=== PATIENT | female | born 1940 | race Caucasian/White ===

== ENCOUNTER → 2016-04-08 | Outpatient (REF) | payer MEDICARE, BC ==
[~2016-04-08] MED LIST: /PANT40TA PO; ALLE180T33 PO; CLOP75TA2 PO; ELES0.05 OP; FLUTISP; LIPI10TA PO; MAG400TA PO; METO50TA2 PO; MICR8CAP PO; MOM30SS PO; MONT10TA2 PO; STRETAB PO; SYMB16INH INH; VAGI10TA VA; VITA-122 PO; ZOFR8TAB PO; [UNRECOGNIZED DRUG - CODE] PO; [UNRECOGNIZED DRUG - CODE] PO
[2016-04-08 15:57] LABS: ALBUMIN 3.7 GM/DL (3.2-5.2); ALBUMIN/GLOBULIN RATIO 1.42 (1.00-1.93); BILIRUBIN,TOTAL 0.3 MG/DL (0.2-1.0); CALCIUM LEVEL 9.4 MG/DL (8.8-10.2); CREATININE FOR GFR 1.25 MG/DL (0.55-1.02); GLOMERULAR FILTRATION RATE 44.5 (>39); POTASSIUM SERUM 4.9 MEQ/L (3.5-5.1); TOTAL PROTEIN 6.3 GM/DL (6.4-8.2)
== END ==
LOC: M SFHCPLAZ 10:40
PROVIDERS: ATTEND Internal Medicine
DX: E78.00 Pure hypercholesterolemia, unspecified (principal); M81.0 Age-related osteoporosis without current pathological fracture

== ENCOUNTER 2016-05-02 23:59 | Emergency (ER) | payer MEDICARE, BC ==
[2016-05-03] MEDS ORDERED: ONDANSETRON 4MG/2ML VIAL (J2405) As Ordered ONE (00:52)
[2016-05-03 01:28] LABS: ALBUMIN 4.1 GM/DL (3.2-5.2); ALBUMIN/GLOBULIN RATIO 1.32 (1.00-1.93); ALKALINE PHOSPHATASE 88 U/L (45-117); ALT/SGPT 45 U/L (12-78); AMYLASE 47 U/L (25-115); ANION GAP 12 MEQ/L (8-16); AST/SGOT 39 U/L (15-37); BILIRUBIN,DIRECT < 0.1 MG/DL (0.0-0.2); BILIRUBIN,TOTAL 0.4 MG/DL (0.2-1.0); BLOOD UREA NITROGEN 19 MG/DL (7-18); CALCIUM LEVEL 9.4 MG/DL (8.8-10.2); CARBON DIOXIDE LEVEL 25 MEQ/L (21-32); CHLORIDE LEVEL 103 MEQ/L (98-107); CREATININE FOR GFR 1.21 MG/DL (0.55-1.02); GLOMERULAR FILTRATION RATE 46.2 (>39); GLUCOSE, FASTING 106 MG/DL (83-110); POTASSIUM SERUM 4.2 MEQ/L (3.5-5.1); SODIUM LEVEL 140 MEQ/L (136-145); TOTAL PROTEIN 7.2 GM/DL (6.4-8.2)
[2016-05-03 01:35] LABS: BASO % 0.2 % (0.0-1.0); EOS # 0.1 K/mm3 (0.0-0.50); EOS % 0.9 % (0.0-3.0); LARGE UNSTAINED CELL # 0.1 K/mm3 (0.0-0.4); LARGE UNSTAINED CELL % 0.8 % (0.0-4.0); MEAN CORPUSCULAR HEMOGLOBIN 32.4 pg (27.0-33.0); MEAN CORPUSCULAR HGB CONC 33.1 g/dl (32.0-36.5); MEAN CORPUSCULAR VOLUME 98.1 fl (80.0-96.0); MONO # 0.9 K/mm3 (0.0-0.8); NEUTROPHILS # 12.7 K/mm3 (1.8-7.7); NEUTROPHILS % 86.2 % (36.0-66.0); PLATELET COUNT, AUTOMATED 217 k/mm3 (150-450); WHITE BLOOD COUNT 14.8 K/mm3 (4.0-10.0)
[2016-05-03] MEDS ORDERED: MAGNESIUM OXIDE 400 MG TAB (MAG-OX) As Ordered ONE (03:48)
--- NOTE | 2016-05-03 04:02 | EDDOCDS ---
Physician Documentation [facility] Name: Emperatriz Grimaldo Age: 76 yrs Sex: Female : 1940 Arrival Date: 05/02/2016 Time: 23:59 Bed 15 Private MD: Disposition: 05/03/16 03:24 Discharged to Home/Self Care. Impression: Nausea and vomiting, Diarrhea, unspecified, Hypomagnesemia. - Condition is Stable. - Discharge Instructions: Diarrhea, Hypomagnesemia, Nausea and Vomiting. - Prescriptions for Zofran 4 mg Oral Tablet - take 1 tablet by ORAL route 4 times per day As needed; 10 tablet. - Medication Reconciliation, Local Pharmacy Hours form. - Follow up: Javier Ríos; When: Call to arrange an appointment; Reason: Continuance of care. - Problem is an acute exacerbation. - Symptoms have improved. Historical: - Allergies: hydrocodone; lactose intolerant; - Home Meds: 1. metoprolol tartrate 50 mg Oral tab 1 tab 2 times per day 2. pantoprazole 40 mg oral TbEC 1 tab once daily 3. montelukast 10 mg oral tab 1 tab once daily 4. meloxicam 15 mg oral tab 1 tab once daily 5. epinastine 0.05 % ophthalmic drop 1 drop 2 times per day 6. fluticasone 50 mcg/actuation nasal spsn 2 sprays once daily 7. atorvastatin 10 mg oral tab 3 times a weeks 8. Vagifem 10 mcg vaginal tab 1 tab 2 times per wk 9. amoxicillin 500 mg Oral cap 4 caps prior to dental visit 10. Vitamin D3 1,000 unit oral cap daily 11. B-Complex oral tab daily 12. glucosamine-chondroitin oral oral 13. Justine Allergy oral oral daily 14. aspirin 81 mg Oral tab 1 tab once daily - PMHx: Non-Hodgkin's Lymphoma; congenital hip dislocation (left); Shingles; mononucleosis; Hypertension; High Cholesterol; GERD; - PSHx: Appendectomy; Cholecystectomy; Hysterectomy; Tonsillectomy; Hip surgery; surgery for endometriosis; - Social history: Smoking status: Patient states was never smoker of tobacco. No barriers to communication noted, The patient speaks fluent French, Speaks appropriately for age. - Family history: Not pertinent. - : The pt / caregiver states he / she is not on anticoagulants. Home medication list is obtained from the patient. - Exposure Risk Screening:: None identified. Vital Signs: 05/03 00:07 BP 141 / 69; Pulse 88; Resp 18; Temp 96.5(TE); Pulse Ox 97% on R/A; Weight 79.38 kg / johnnie 175 lbs (R); Height 5 ft. 7 in. (170.18 cm) (R); 03:38 BP 144 / 83; Pulse 107; Resp 18; Temp 98.4(O); Pulse Ox 94% on R/A; Pain 0/10; johnnie 00:07 Body Mass Index 27.41 (79.38 kg, 170.18 cm) johnnie MDM: 00:46 Ondansetron 4 mg IVP once ordered. mm11 00:46 IV Saline Lock ordered. mm11 00:46 Undress patient appropriately for examination ordered. mm11 00:46 LR Solution 1000 ml IV at bolus once ordered. mm11 00:47 Amylase Ordered. EDMS 00:47 Basic Metabolic Profile Ordered. EDMS 00:47 CBC with Diff Ordered. EDMS 00:47 Cardiac Injury Profile Ordered. EDMS 00:47 Lipase Ordered. EDMS 00:47 Liver Profile Ordered. EDMS 00:47 Troponin Ordered. EDMS 00:47 Magnesium Level Ordered. EDMS 00:47 NOTHING BY MOUTH+DIET ordered. EDMS 01:22 Financial registration complete. pm4 02:00 Basic Metabolic Profile Reviewed. mm11 02:00 CBC with Diff Reviewed. mm11 02:00 Liver Profile Reviewed. mm11 02:00 Magnesium Level Reviewed. mm11 02:00 Amylase Reviewed. mm11 02:00 Cardiac Injury Profile Reviewed. mm11 02:00 Lipase Reviewed. mm11 02:00 Troponin Reviewed. mm11 03:14 Magnesium Oxide 400 mg PO once ordered. mm11 03:17 [facility] [place] Payment Agreement was scanned into [employer] and attached to record. gjb Administered Medications: 00:56 Drug: Ondansetron 4 mg [ondansetron HCl 2 mg/mL intravenous solution (2 mL)] Route: js15 IVP; Site: left antecubital; 00:56 Drug: LR 1000 ml [lactated ringers intravenous solution] Route: IV; Rate: bolus; Site: js15 left antecubital; 03:58 Follow up: IV Intake: 600ml js15 03:58 Drug: Magnesium Oxide 400 mg [magnesium oxide 400 mg tablet (1 tabs)] Route: PO; js15 Signatures: Dispatcher [employer] Anibal Pierre DO DO mm11 Alison DoanRN RN js15 Britni Macedo Paul, Reg Reg pm4 The chart was reviewed and I authenticate all verbal orders and agree with the evaluation and treatment provided.Attachments: 03:17 [facility] Payment Agreement della MTDD
--- NOTE | 2016-05-03 04:02 | EDDOCDS ---
Nurse's Notes [facility] Name: Emperatriz Grimaldo Age: 76 yrs Sex: Female : 1940 Arrival Date: 05/02/2016 Time: 23:59 Bed 15 Private MD: Diagnosis: Nausea and vomiting;Diarrhea, unspecified;Hypomagnesemia Presentation: 05/03 00:07 Presenting complaint: EMS states: Pt has N/V/D that started earlier this evening; pt js15 states that she has hx of becoming very dehydrated when this happens. Adult Sepsis Screening: The patient does not have new or worsening altered mentation. Patient's respiratory rate is less than 22. Systolic blood pressure is greater than 100. Patient has a qSOFA score of 0- Negative Sepsis Screen. Suicide/Homicide risk assessment- the patient denies having any suicidal and/or homicidal ideations and does not present with any other emotional, behavioral or mental health complaints. Status: Patient is not a director of maternity services or dependent. Transition of care: patient was not received from another setting of care. 00:07 Acuity: JUDY Level 3 js15 00:07 Method Of Arrival: Ambulance js15 Triage Assessment: 00:18 General: Appears uncomfortable, Behavior is anxious, appropriate for age, cooperative. js15 Pain: Location: back Pain currently is 6 out of 10 on a pain scale. The patient is triaged at the bedside. See Assessment in Nurses Notes section of ED record. Neurological: Level of Consciousness is awake, alert, obeys commands, Oriented to person, place, time. Respiratory: Airway is patent Respiratory effort is even, unlabored, Respiratory pattern is regular, symmetrical. Derm: Skin is pink, warm & dry. Historical: - Allergies: hydrocodone; lactose intolerant; - Home Meds: 1. metoprolol tartrate 50 mg Oral tab 1 tab 2 times per day 2. pantoprazole 40 mg oral TbEC 1 tab once daily 3. montelukast 10 mg oral tab 1 tab once daily 4. meloxicam 15 mg oral tab 1 tab once daily 5. epinastine 0.05 % ophthalmic drop 1 drop 2 times per day 6. fluticasone 50 mcg/actuation nasal spsn 2 sprays once daily 7. atorvastatin 10 mg oral tab 3 times a weeks 8. Vagifem 10 mcg vaginal tab 1 tab 2 times per wk 9. amoxicillin 500 mg Oral cap 4 caps prior to dental visit 10. Vitamin D3 1,000 unit oral cap daily 11. B-Complex oral tab daily 12. glucosamine-chondroitin oral oral 13. Justine Allergy oral oral daily 14. aspirin 81 mg Oral tab 1 tab once daily - PMHx: Non-Hodgkin's Lymphoma; congenital hip dislocation (left); Shingles; mononucleosis; Hypertension; High Cholesterol; GERD; - PSHx: Appendectomy; Cholecystectomy; Hysterectomy; Tonsillectomy; Hip surgery; surgery for endometriosis; - Social history: Smoking status: Patient states was never smoker of tobacco. No barriers to communication noted, The patient speaks fluent Spanish, Speaks appropriately for age. - Family history: Not pertinent. - : The pt / caregiver states he / she is not on anticoagulants. Home medication list is obtained from the patient. - Exposure Risk Screening:: None identified. Screenin:54 Screening information is obtained from the patient. Fall risk: No risks identified. js15 Assistance ADL's: requires no assistance with activities of daily living. Abuse/DV Screen: The patient / caregiver reports he/she is: not in a situation that causes fear, pain or injury. Nutritional screening: No deficits noted. Advance Directives: There is no active DNR order. home support is adequate. Assessment: 00:15 General: see triage note. js15 01:52 Reassessment: Patient appears in no apparent distress at this time. Patient states js15 feeling better. Patient states symptoms have improved. Pt resting on stretcher, using ipad; respirations even and unlabored; skin pink, warm, dry. 02:45 Reassessment: Patient appears in no apparent distress at this time. Patient states js15 feeling better. Patient states symptoms have improved. Pt resting on stretcher, respirations even and unlabored; skin pink, warm, dry. 03:59 General: Appears in no apparent distress, comfortable, Behavior is appropriate for age, js15 cooperative. Pain: Denies pain. Neurological: Level of Consciousness is awake, alert, obeys commands, Oriented to person, place, time. Respiratory: Airway is patent Respiratory effort is even, unlabored, Respiratory pattern is regular, symmetrical. GI: Bowel sounds present X 4 quads. Abd is soft and non tender X 4 quads. Derm: Skin is pink, warm & dry. Vital Signs: 00:07 BP 141 / 69; Pulse 88; Resp 18; Temp 96.5(TE); Pulse Ox 97% on R/A; Weight 79.38 kg johnnie (R); Height 5 ft. 7 in. (170.18 cm) (R); 03:38 BP 144 / 83; Pulse 107; Resp 18; Temp 98.4(O); Pulse Ox 94% on R/A; Pain 0/10; johnnie 00:07 Body Mass Index 27.41 (79.38 kg, 170.18 cm) johnnie Vitals: 00:18 Log In Time N/A - ambulance arrival. js15 ED Course: 00:01 Patient visited by Rashi Pizarro, Parking Enforcer. ml3 00:01 Mildred Del Toro,EMIR is Primary Nurse. ml3 00:01 Patient moved to Waiting ml3 00:01 Patient moved to 15 ml3 00:07 Patient visited by Katie Ferraro PCA. johnnie 00:09 Triage Initiated js15 00:39 Anibal Allred DO is Attending Physician. mm11 00:39 Patient visited by Anibal Allred DO. mm11 00:45 Patient visited by Anibal Allred DO. mm11 00:50 Inserted saline lock: 20 gauge in left antecubital area The patient tolerated the js15 procedure well. 00:51 Magnesium Level Sent. js15 00:51 Amylase Sent. js15 00:51 Basic Metabolic Profile Sent. js15 00:51 CBC with Diff Sent. js15 00:51 Cardiac Injury Profile Sent. js15 00:51 Lipase Sent. js15 00:51 Liver Profile Sent. js15 00:51 Troponin Sent. js15 00:54 Primary Nurse role handed off by Mildred Del Toro,EMIR johnnie 01:50 Patient visited by Alison Doan RN. js15 03:04 Patient visited by Katie Ferraro PCA. johnnie 03:16 Patient name changed from Emperatriz\S\\S\Kingman\S\ to Emperatriz\S\ \S\Kingman. EDMS 03:17 [facility] Payment Agreement was scanned into [employer] and attached to record. gjb 03:23 Javier Ríos is Referral Physician. mm11 03:39 Patient visited by Katie Ferraro PCA. johnnie 03:59 The patient / caregiver is instructed regarding the plan of care and ED course. js15 04:01 Discontinued IV lock intact, bleeding controlled, pressure dressing applied, No js15 redness/swelling at site. No procedures done that require assistance. Administered Medications: 00:56 Drug: Ondansetron 4 mg [ondansetron HCl 2 mg/mL intravenous solution (2 mL)] Route: js15 IVP; Site: left antecubital; 00:56 Drug: LR 1000 ml [lactated ringers intravenous solution] Route: IV; Rate: bolus; Site: js15 left antecubital; 03:58 Follow up: IV Intake: 600ml js15 03:58 Drug: Magnesium Oxide 400 mg [magnesium oxide 400 mg tablet (1 tabs)] Route: PO; js15 Intake: 03:58 IV: 600.00ml; Total: 600.00ml. js15 Order Results: Lab Order: Amylase; SPEC'M 05/03/16 00:49 Test: AMYLASE; Value: 47; Range: 25-115; Units: U/L; Status: F Lab Order: Basic Metabolic Profile; SPEC'M 05/03/16 00:49 Test: GLUCOSE, FASTING; Value: 106; Range: 83-110; Units: MG/DL; Status: F Test: BLOOD UREA NITROGEN; Value: 19; Range: 7-18; Abnormal: Above high normal; Units: MG/DL; Status: F Test: CREATININE FOR GFR; Value: 1.21; Range: 0.55-1.02; Abnormal: Above high normal; Units: MG/DL; Status: F Test: GLOMERULAR FILTRATION RATE; Value: 46.2; Range: >39; Status: F Test: SODIUM LEVEL; Value: 140; Range: 136-145; Units: MEQ/L; Status: F Test: POTASSIUM SERUM; Value: 4.2; Range: 3.5-5.1; Units: MEQ/L; Status: F Test: CHLORIDE LEVEL; Value: 103; Range: 98-107; Units: MEQ/L; Status: F Test: CARBON DIOXIDE LEVEL; Value: 25; Range: 21-32; Units: MEQ/L; Status: F Test: ANION GAP; Value: 12; Range: 8-16; Units: MEQ/L; Status: F Test: CALCIUM LEVEL; Value: 9.4; Range: 8.8-10.2; Units: MG/DL; Status: F Test Note: ; Units are mL/min/1.73 m2 Chronic Kidney Disease Staging per NKF: Stage I & II GFR >=60 Normal to Mildly Decreased Stage III GFR 30-59 Moderately Decreased Stage IV GFR 15-29 Severely Decreased Stage V GFR <15 Very Little GFR Left ESRD GFR <15 on PIE MAKER Lab Order: CBC with Diff; SPEC'M 05/03/16 00:49 Test: WHITE BLOOD COUNT; Value: 14.8; Range: 4.0-10.0; Abnormal: Above high normal; Units: K/mm3; Status: F Test: RED BLOOD COUNT; Value: 5.31; Range: 4.00-5.40; Units: M/mm3; Status: F Test: HEMOGLOBIN; Value: 17.2; Range: 12.0-16.0; Abnormal: Above high normal; Units: g/dl; Status: F Test: HEMATOCRIT; Value: 52.1; Range: 36.0-47.0; Abnormal: Above high normal; Units: %; Status: F Test: MEAN CORPUSCULAR VOLUME; Value: 98.1; Range: 80.0-96.0; Abnormal: Above high normal; Units: fl; Status: F Test: MEAN CORPUSCULAR HEMOGLOBIN; Value: 32.4; Range: 27.0-33.0; Units: pg; Status: F Test: MEAN CORPUSCULAR HGB CONC; Value: 33.1; Range: 32.0-36.5; Units: g/dl; Status: F Test: RED CELL DISTRIBUTION WIDTH; Value: 13.0; Range: 11.5-14.5; Units: %; Status: F Test: PLATELET COUNT, AUTOMATED; Value: 217; Range: 150-450; Units: k/mm3; Status: F Test: NEUTROPHILS %; Value: 86.2; Range: 36.0-66.0; Abnormal: Above high normal; Units: %; Status: F Test: LYMPH %; Value: 6.0; Range: 24.0-44.0; Abnormal: Below low normal; Units: %; Status: F Test: MONO %; Value: 6.0; Range: 0.0-5.0; Abnormal: Above high normal; Units: %; Status: F Test: EOS %; Value: 0.9; Range: 0.0-3.0; Units: %; Status: F Test: BASO %; Value: 0.2; Range: 0.0-1.0; Units: %; Status: F Test: LARGE UNSTAINED CELL %; Value: 0.8; Range: 0.0-4.0; Units: %; Status: F Test: NEUTROPHILS #; Value: 12.7; Range: 1.8-7.7; Abnormal: Above high normal; Units: K/mm3; Status: F Test: LYMPH #; Value: 1.0; Range: 1.5-4.5; Abnormal: Below low normal; Units: K/mm3; Status: F Test: MONO #; Value: 0.9; Range: 0.0-0.8; Abnormal: Above high normal; Units: K/mm3; Status: F Test: EOS #; Value: 0.1; Range: 0.0-0.50; Units: K/mm3; Status: F Test: BASO #; Value: 0.0; Range: 0.0-0.2; Units: K/mm3; Status: F Test: LARGE UNSTAINED CELL #; Value: 0.1; Range: 0.0-0.4; Units: K/mm3; Status: F Lab Order: Cardiac Injury Profile; [facility]' 05/03/16 00:49 Test: CPK CREATINE PHOSPHOKINASE; Value: 82; Range: 26-192; Units: U/L; Status: F Test: CK-MB VALUE MASS; Value: 1.0; Range: 0.0-3.6; Units: NG/ML; Status: F Test: MB/CK RELATIVE INDEX; Value: 1.21; Range: < OR =4; Status: F Test Note: ; DIAGNOSIS CRITERIA MMB ng/ml Relative Index (RI) NON-AMI < or = 5 N/A SILVESTRE ZONE > 5 < or = 4 AMI > 5 > 4 Lab Order: Lipase; [facility]' 05/03/16 00:49 Test: LIPASE; Value: 165; Range: 73-393; Units: U/L; Status: F Lab Order: Liver Profile; SPEC' 05/03/16 00:49 Test: AST/SGOT; Value: 39; Range: 15-37; Abnormal: Above high normal; Units: U/L; Status: F Test: ALT/SGPT; Value: 45; Range: 12-78; Units: U/L; Status: F Test: ALKALINE PHOSPHATASE; Value: 88; Range: 45-117; Units: U/L; Status: F Test: BILIRUBIN,TOTAL; Value: 0.4; Range: 0.2-1.0; Units: MG/DL; Status: F Test: BILIRUBIN,DIRECT; Value: < 0.1; Range: 0.0-0.2; Units: MG/DL; Status: F Test: TOTAL PROTEIN; Value: 7.2; Range: 6.4-8.2; Units: GM/DL; Status: F Test: ALBUMIN; Value: 4.1; Range: 3.2-5.2; Units: GM/DL; Status: F Test: ALBUMIN/GLOBULIN RATIO; Value: 1.32; Range: 1.00-1.93; Status: F Lab Order: Troponin; [facility]' 05/03/16 00:49 Test: TROPONIN I; Value: < 0.02; Range: < 0.10; Units: NG/ML; Status: F Test Note: ; Troponin I Reference Interval for [facility] [employer] LOCI: 99th Percentile= 0.00-0.045 ng/ml Risk Stratification: <= 0.10 ng/ml Decreased Risk for Adverse Clinical Events. 0.10-1.50 ng/ml Increased Risk for Adverse Clinical Events. Evaluation of additional criterion and/or repeat testing in 2-6 hours is suggested to rule out myocardial damage. >= 1.50 ng/ml Indicative of Myocardial Injury. Lab Order: Magnesium Level; SPEC'M 05/03/16 00:49 Test: MAGNESIUM LEVEL; Value: 1.7; Range: 1.8-2.4; Abnormal: Below low normal; Units: MG/DL; Status: F Outcome: 03:24 Discharge ordered by Provider. mm11 04:01 Discharge Assessment: Patient awake, alert and oriented x 3. No cognitive and/or js15 functional deficits noted. Patient verbalized understanding of disposition instructions. patient administered narcotics - no. The following High Risk Discharge criteria are identified: None. Discharged to home via wheelchair. Condition: stable. Discharge instructions given to patient, Instructed on discharge instructions, follow up and referral plans. medication usage, Demonstrated understanding of instructions, medications, Pt was receptive of discharge instructions/ teaching. Prescriptions given X 1. No special radiology studies were completed. Property sent home with patient. 04:01 Patient left the ED. js15 Signatures: Dispatcher [employer] EDMS Rashi Pizarro, Parking Enforcer Unit ml3 Anibal Allred, DO mm11 Katie Ferraro, LAUNDERER HAND LAUNDERER HAND Alison Vail,RN RN js15 Britni Macedo MTDD
--- NOTE | 2016-05-05 05:02 | EDDOCDS ---
Physician Documentation [facility] Name: Emperatriz Grimaldo Age: 76 yrs Sex: Female : 1940 Arrival Date: 05/02/2016 Time: 23:59 Bed 15 Private MD: Disposition: 05/03/16 03:24 Discharged to Home/Self Care. Impression: Nausea and vomiting, Diarrhea, unspecified, Hypomagnesemia. - Condition is Stable. - Discharge Instructions: Diarrhea, Hypomagnesemia, Nausea and Vomiting. - Prescriptions for Zofran 4 mg Oral Tablet - take 1 tablet by ORAL route 4 times per day As needed; 10 tablet. - Medication Reconciliation, Local Pharmacy Hours form. - Follow up: Javier Ríos; When: Call to arrange an appointment; Reason: Continuance of care. - Problem is an acute exacerbation. - Symptoms have improved. Historical: - Allergies: hydrocodone; lactose intolerant; - Home Meds: 1. metoprolol tartrate 50 mg Oral tab 1 tab 2 times per day 2. pantoprazole 40 mg oral TbEC 1 tab once daily 3. montelukast 10 mg oral tab 1 tab once daily 4. meloxicam 15 mg oral tab 1 tab once daily 5. epinastine 0.05 % ophthalmic drop 1 drop 2 times per day 6. fluticasone 50 mcg/actuation nasal spsn 2 sprays once daily 7. atorvastatin 10 mg oral tab 3 times a weeks 8. Vagifem 10 mcg vaginal tab 1 tab 2 times per wk 9. amoxicillin 500 mg Oral cap 4 caps prior to dental visit 10. Vitamin D3 1,000 unit oral cap daily 11. B-Complex oral tab daily 12. glucosamine-chondroitin oral oral 13. Justine Allergy oral oral daily 14. aspirin 81 mg Oral tab 1 tab once daily - PMHx: Non-Hodgkin's Lymphoma; congenital hip dislocation (left); Shingles; mononucleosis; Hypertension; High Cholesterol; GERD; - PSHx: Appendectomy; Cholecystectomy; Hysterectomy; Tonsillectomy; Hip surgery; surgery for endometriosis; - Social history: Smoking status: Patient states was never smoker of tobacco. No barriers to communication noted, The patient speaks fluent [place], Speaks appropriately for age. - Family history: Not pertinent. - : The pt / caregiver states he / she is not on anticoagulants. Home medication list is obtained from the patient. - Exposure Risk Screening:: None identified. Vital Signs: 05/03 00:07 BP 141 / 69; Pulse 88; Resp 18; Temp 96.5(TE); Pulse Ox 97% on R/A; Weight 79.38 kg / johnnie 175 lbs (R); Height 5 ft. 7 in. (170.18 cm) (R); 03:38 BP 144 / 83; Pulse 107; Resp 18; Temp 98.4(O); Pulse Ox 94% on R/A; Pain 0/10; johnnie 00:07 Body Mass Index 27.41 (79.38 kg, 170.18 cm) johnnie MDM: 00:46 Ondansetron 4 mg IVP once ordered. mm11 00:46 IV Saline Lock ordered. mm11 00:46 Undress patient appropriately for examination ordered. mm11 00:46 LR Solution 1000 ml IV at bolus once ordered. mm11 00:47 Amylase Ordered. EDMS 00:47 Basic Metabolic Profile Ordered. EDMS 00:47 CBC with Diff Ordered. EDMS 00:47 Cardiac Injury Profile Ordered. EDMS 00:47 Lipase Ordered. EDMS 00:47 Liver Profile Ordered. EDMS 00:47 Troponin Ordered. EDMS 00:47 Magnesium Level Ordered. EDMS 00:47 NOTHING BY MOUTH+DIET ordered. EDMS 01:22 Financial registration complete. pm4 02:00 Basic Metabolic Profile Reviewed. mm11 02:00 CBC with Diff Reviewed. mm11 02:00 Liver Profile Reviewed. mm11 02:00 Magnesium Level Reviewed. mm11 02:00 Amylase Reviewed. mm11 02:00 Cardiac Injury Profile Reviewed. mm11 02:00 Lipase Reviewed. mm11 02:00 Troponin Reviewed. mm11 03:14 Magnesium Oxide 400 mg PO once ordered. mm11 03:17 [facility] Payment Agreement was scanned into [employer] and attached to record. gjb 17:12 T-Sheet-- Draft Copy was scanned into [employer] and attached to record. klr Administered Medications: 00:56 Drug: Ondansetron 4 mg [ondansetron HCl 2 mg/mL intravenous solution (2 mL)] Route: js15 IVP; Site: left antecubital; 00:56 Drug: LR 1000 ml [lactated ringers intravenous solution] Route: IV; Rate: bolus; Site: js15 left antecubital; 03:58 Follow up: IV Intake: 600ml js15 03:58 Drug: Magnesium Oxide 400 mg [magnesium oxide 400 mg tablet (1 tabs)] Route: PO; js15 Signatures: Dispatcher [employer] Anibal Pierre DO DO mm11 Alison Doan,RN RN js15 Britni Macedo Kathie klr Montondo, Paul, Reg Reg pm4 The chart was reviewed and I authenticate all verbal orders and agree with the evaluation and treatment provided.Attachments: 03:17 [facility] Payment Agreement gjiron 17:12 T-Sheet-- Draft Copy klr Chart Complete MTDD
--- NOTE | 2016-05-05 05:02 | EDDOCDS ---
Physician Documentation [facility] Name: Emperatriz Grimaldo Age: 76 yrs Sex: Female : 1940 Arrival Date: 05/02/2016 Time: 23:59 Bed 15 Private MD: Disposition: 05/03/16 03:24 Discharged to Home/Self Care. Impression: Nausea and vomiting, Diarrhea, unspecified, Hypomagnesemia. - Condition is Stable. - Discharge Instructions: Diarrhea, Hypomagnesemia, Nausea and Vomiting. - Prescriptions for Zofran 4 mg Oral Tablet - take 1 tablet by ORAL route 4 times per day As needed; 10 tablet. - Medication Reconciliation, Local Pharmacy Hours form. - Follow up: Javier Ríos; When: Call to arrange an appointment; Reason: Continuance of care. - Problem is an acute exacerbation. - Symptoms have improved. Historical: - Allergies: hydrocodone; lactose intolerant; - Home Meds: 1. metoprolol tartrate 50 mg Oral tab 1 tab 2 times per day 2. pantoprazole 40 mg oral TbEC 1 tab once daily 3. montelukast 10 mg oral tab 1 tab once daily 4. meloxicam 15 mg oral tab 1 tab once daily 5. epinastine 0.05 % ophthalmic drop 1 drop 2 times per day 6. fluticasone 50 mcg/actuation nasal spsn 2 sprays once daily 7. atorvastatin 10 mg oral tab 3 times a weeks 8. Vagifem 10 mcg vaginal tab 1 tab 2 times per wk 9. amoxicillin 500 mg Oral cap 4 caps prior to dental visit 10. Vitamin D3 1,000 unit oral cap daily 11. B-Complex oral tab daily 12. glucosamine-chondroitin oral oral 13. Justine Allergy oral oral daily 14. aspirin 81 mg Oral tab 1 tab once daily - PMHx: Non-Hodgkin's Lymphoma; congenital hip dislocation (left); Shingles; mononucleosis; Hypertension; High Cholesterol; GERD; - PSHx: Appendectomy; Cholecystectomy; Hysterectomy; Tonsillectomy; Hip surgery; surgery for endometriosis; - Social history: Smoking status: Patient states was never smoker of tobacco. No barriers to communication noted, The patient speaks fluent Wolof, Speaks appropriately for age. - Family history: Not pertinent. - : The pt / caregiver states he / she is not on anticoagulants. Home medication list is obtained from the patient. - Exposure Risk Screening:: None identified. Vital Signs: 05/03 00:07 BP 141 / 69; Pulse 88; Resp 18; Temp 96.5(TE); Pulse Ox 97% on R/A; Weight 79.38 kg / johnnie 175 lbs (R); Height 5 ft. 7 in. (170.18 cm) (R); 03:38 BP 144 / 83; Pulse 107; Resp 18; Temp 98.4(O); Pulse Ox 94% on R/A; Pain 0/10; johnnie 00:07 Body Mass Index 27.41 (79.38 kg, 170.18 cm) johnnie MDM: 00:46 Ondansetron 4 mg IVP once ordered. mm11 00:46 IV Saline Lock ordered. mm11 00:46 Undress patient appropriately for examination ordered. mm11 00:46 LR Solution 1000 ml IV at bolus once ordered. mm11 00:47 Amylase Ordered. EDMS 00:47 Basic Metabolic Profile Ordered. EDMS 00:47 CBC with Diff Ordered. EDMS 00:47 Cardiac Injury Profile Ordered. EDMS 00:47 Lipase Ordered. EDMS 00:47 Liver Profile Ordered. EDMS 00:47 Troponin Ordered. EDMS 00:47 Magnesium Level Ordered. EDMS 00:47 NOTHING BY MOUTH+DIET ordered. EDMS 01:22 Financial registration complete. pm4 02:00 Basic Metabolic Profile Reviewed. mm11 02:00 CBC with Diff Reviewed. mm11 02:00 Liver Profile Reviewed. mm11 02:00 Magnesium Level Reviewed. mm11 02:00 Amylase Reviewed. mm11 02:00 Cardiac Injury Profile Reviewed. mm11 02:00 Lipase Reviewed. mm11 02:00 Troponin Reviewed. mm11 03:14 Magnesium Oxide 400 mg PO once ordered. mm11 03:17 [facility] Payment Agreement was scanned into [employer] and attached to record. gjb 17:12 T-Sheet-- Draft Copy was scanned into [employer] and attached to record. klr Administered Medications: 00:56 Drug: Ondansetron 4 mg [ondansetron HCl 2 mg/mL intravenous solution (2 mL)] Route: js15 IVP; Site: left antecubital; 00:56 Drug: LR 1000 ml [lactated ringers intravenous solution] Route: IV; Rate: bolus; Site: js15 left antecubital; 03:58 Follow up: IV Intake: 600ml js15 03:58 Drug: Magnesium Oxide 400 mg [magnesium oxide 400 mg tablet (1 tabs)] Route: PO; js15 Signatures: Dispatcher [employer] Anibal Pierre DO DO mm11 Alison Doan,RN RN js15 Britni Macedo Kathie klr Montondo, Paul, Reg Reg pm4 The chart was reviewed and I authenticate all verbal orders and agree with the evaluation and treatment provided.Attachments: 03:17 [facility] Payment Agreement gjiron 17:12 T-Sheet-- Draft Copy klr Chart Complete MTDD
--- NOTE | 2016-05-05 05:02 | EDDOCDS ---
Nurse's Notes [facility] Name: Emperatriz Grimaldo Age: 76 yrs Sex: Female : 1940 Arrival Date: 05/02/2016 Time: 23:59 Bed 15 Private MD: Diagnosis: Nausea and vomiting;Diarrhea, unspecified;Hypomagnesemia Presentation: 05/03 00:07 Presenting complaint: EMS states: Pt has N/V/D that started earlier this evening; pt js15 states that she has hx of becoming very dehydrated when this happens. Adult Sepsis Screening: The patient does not have new or worsening altered mentation. Patient's respiratory rate is less than 22. Systolic blood pressure is greater than 100. Patient has a qSOFA score of 0- Negative Sepsis Screen. Suicide/Homicide risk assessment- the patient denies having any suicidal and/or homicidal ideations and does not present with any other emotional, behavioral or mental health complaints. Status: Patient is not a fitness services manager or dependent. Transition of care: patient was not received from another setting of care. 00:07 Acuity: JUDY Level 3 js15 00:07 Method Of Arrival: Ambulance js15 Triage Assessment: 00:18 General: Appears uncomfortable, Behavior is anxious, appropriate for age, cooperative. js15 Pain: Location: back Pain currently is 6 out of 10 on a pain scale. The patient is triaged at the bedside. See Assessment in Nurses Notes section of ED record. Neurological: Level of Consciousness is awake, alert, obeys commands, Oriented to person, place, time. Respiratory: Airway is patent Respiratory effort is even, unlabored, Respiratory pattern is regular, symmetrical. Derm: Skin is pink, warm & dry. Historical: - Allergies: hydrocodone; lactose intolerant; - Home Meds: 1. metoprolol tartrate 50 mg Oral tab 1 tab 2 times per day 2. pantoprazole 40 mg oral TbEC 1 tab once daily 3. montelukast 10 mg oral tab 1 tab once daily 4. meloxicam 15 mg oral tab 1 tab once daily 5. epinastine 0.05 % ophthalmic drop 1 drop 2 times per day 6. fluticasone 50 mcg/actuation nasal spsn 2 sprays once daily 7. atorvastatin 10 mg oral tab 3 times a weeks 8. Vagifem 10 mcg vaginal tab 1 tab 2 times per wk 9. amoxicillin 500 mg Oral cap 4 caps prior to dental visit 10. Vitamin D3 1,000 unit oral cap daily 11. B-Complex oral tab daily 12. glucosamine-chondroitin oral oral 13. Justine Allergy oral oral daily 14. aspirin 81 mg Oral tab 1 tab once daily - PMHx: Non-Hodgkin's Lymphoma; congenital hip dislocation (left); Shingles; mononucleosis; Hypertension; High Cholesterol; GERD; - PSHx: Appendectomy; Cholecystectomy; Hysterectomy; Tonsillectomy; Hip surgery; surgery for endometriosis; - Social history: Smoking status: Patient states was never smoker of tobacco. No barriers to communication noted, The patient speaks fluent Tunisian, Speaks appropriately for age. - Family history: Not pertinent. - : The pt / caregiver states he / she is not on anticoagulants. Home medication list is obtained from the patient. - Exposure Risk Screening:: None identified. Screenin:54 Screening information is obtained from the patient. Fall risk: No risks identified. js15 Assistance ADL's: requires no assistance with activities of daily living. Abuse/DV Screen: The patient / caregiver reports he/she is: not in a situation that causes fear, pain or injury. Nutritional screening: No deficits noted. Advance Directives: There is no active DNR order. home support is adequate. Assessment: 00:15 General: see triage note. js15 01:52 Reassessment: Patient appears in no apparent distress at this time. Patient states js15 feeling better. Patient states symptoms have improved. Pt resting on stretcher, using ipad; respirations even and unlabored; skin pink, warm, dry. 02:45 Reassessment: Patient appears in no apparent distress at this time. Patient states js15 feeling better. Patient states symptoms have improved. Pt resting on stretcher, respirations even and unlabored; skin pink, warm, dry. 03:59 General: Appears in no apparent distress, comfortable, Behavior is appropriate for age, js15 cooperative. Pain: Denies pain. Neurological: Level of Consciousness is awake, alert, obeys commands, Oriented to person, place, time. Respiratory: Airway is patent Respiratory effort is even, unlabored, Respiratory pattern is regular, symmetrical. GI: Bowel sounds present X 4 quads. Abd is soft and non tender X 4 quads. Derm: Skin is pink, warm & dry. Vital Signs: 00:07 BP 141 / 69; Pulse 88; Resp 18; Temp 96.5(TE); Pulse Ox 97% on R/A; Weight 79.38 kg johnnie (R); Height 5 ft. 7 in. (170.18 cm) (R); 03:38 BP 144 / 83; Pulse 107; Resp 18; Temp 98.4(O); Pulse Ox 94% on R/A; Pain 0/10; johnnie 00:07 Body Mass Index 27.41 (79.38 kg, 170.18 cm) johnnie Vitals: 00:18 Log In Time N/A - ambulance arrival. js15 ED Course: 00:01 Patient visited by Rashi Pizarro, Pasta Press Operator. ml3 00:01 Mildred Del Toro,EMIR is Primary Nurse. ml3 00:01 Patient moved to Waiting ml3 00:01 Patient moved to 15 ml3 00:07 Patient visited by Katie Ferraro PCA. johnnie 00:09 Triage Initiated js15 00:39 Anibal Allred DO is Attending Physician. mm11 00:39 Patient visited by Anibal Allred DO. mm11 00:45 Patient visited by Anibal Allred DO. mm11 00:50 Inserted saline lock: 20 gauge in left antecubital area The patient tolerated the js15 procedure well. 00:51 Magnesium Level Sent. js15 00:51 Amylase Sent. js15 00:51 Basic Metabolic Profile Sent. js15 00:51 CBC with Diff Sent. js15 00:51 Cardiac Injury Profile Sent. js15 00:51 Lipase Sent. js15 00:51 Liver Profile Sent. js15 00:51 Troponin Sent. js15 00:54 Primary Nurse role handed off by Mildred Del Toro,EMIR johnnie 01:50 Patient visited by Alison Doan RN. js15 03:04 Patient visited by Katie Ferraro PCA. johnnie 03:16 Patient name changed from Emperatriz\S\\S[facility]\S\ to Emperatriz\S\ \S\[facility]. EDMS 03:17 [facility] was scanned into [employer] and attached to record. gjb 03:23 Javier Ríos is Referral Physician. mm11 03:39 Patient visited by Katie Ferraro PCA. johnnie 03:59 The patient / caregiver is instructed regarding the plan of care and ED course. js15 04:01 Discontinued IV lock intact, bleeding controlled, pressure dressing applied, No js15 redness/swelling at site. No procedures done that require assistance. 17:12 T-Sheet-- Draft Copy was scanned into [employer] and attached to record. klr Administered Medications: 00:56 Drug: Ondansetron 4 mg [ondansetron HCl 2 mg/mL intravenous solution (2 mL)] Route: js15 IVP; Site: left antecubital; 00:56 Drug: LR 1000 ml [lactated ringers intravenous solution] Route: IV; Rate: bolus; Site: js15 left antecubital; 03:58 Follow up: IV Intake: 600ml js15 03:58 Drug: Magnesium Oxide 400 mg [magnesium oxide 400 mg tablet (1 tabs)] Route: PO; js15 Intake: 03:58 IV: 600.00ml; Total: 600.00ml. js15 Order Results: Lab Order: Amylase; SPEC'M 05/03/16 00:49 Test: AMYLASE; Value: 47; Range: 25-115; Units: U/L; Status: F Lab Order: Basic Metabolic Profile; SPEC'M 05/03/16 00:49 Test: GLUCOSE, FASTING; Value: 106; Range: 83-110; Units: MG/DL; Status: F Test: BLOOD UREA NITROGEN; Value: 19; Range: 7-18; Abnormal: Above high normal; Units: MG/DL; Status: F Test: CREATININE FOR GFR; Value: 1.21; Range: 0.55-1.02; Abnormal: Above high normal; Units: MG/DL; Status: F Test: GLOMERULAR FILTRATION RATE; Value: 46.2; Range: >39; Status: F Test: SODIUM LEVEL; Value: 140; Range: 136-145; Units: MEQ/L; Status: F Test: POTASSIUM SERUM; Value: 4.2; Range: 3.5-5.1; Units: MEQ/L; Status: F Test: CHLORIDE LEVEL; Value: 103; Range: 98-107; Units: MEQ/L; Status: F Test: CARBON DIOXIDE LEVEL; Value: 25; Range: 21-32; Units: MEQ/L; Status: F Test: ANION GAP; Value: 12; Range: 8-16; Units: MEQ/L; Status: F Test: CALCIUM LEVEL; Value: 9.4; Range: 8.8-10.2; Units: MG/DL; Status: F Test Note: ; Units are mL/min/1.73 m2 Chronic Kidney Disease Staging per NKF: Stage I & II GFR >=60 Normal to Mildly Decreased Stage III GFR 30-59 Moderately Decreased Stage IV GFR 15-29 Severely Decreased Stage V GFR <15 Very Little GFR Left ESRD GFR <15 on TECHNICAL SALES REPRESENTATIVES Lab Order: CBC with Diff; SPEC'M 05/03/16 00:49 Test: WHITE BLOOD COUNT; Value: 14.8; Range: 4.0-10.0; Abnormal: Above high normal; Units: K/mm3; Status: F Test: RED BLOOD COUNT; Value: 5.31; Range: 4.00-5.40; Units: M/mm3; Status: F Test: HEMOGLOBIN; Value: 17.2; Range: 12.0-16.0; Abnormal: Above high normal; Units: g/dl; Status: F Test: HEMATOCRIT; Value: 52.1; Range: 36.0-47.0; Abnormal: Above high normal; Units: %; Status: F Test: MEAN CORPUSCULAR VOLUME; Value: 98.1; Range: 80.0-96.0; Abnormal: Above high normal; Units: fl; Status: F Test: MEAN CORPUSCULAR HEMOGLOBIN; Value: 32.4; Range: 27.0-33.0; Units: pg; Status: F Test: MEAN CORPUSCULAR HGB CONC; Value: 33.1; Range: 32.0-36.5; Units: g/dl; Status: F Test: RED CELL DISTRIBUTION WIDTH; Value: 13.0; Range: 11.5-14.5; Units: %; Status: F Test: PLATELET COUNT, AUTOMATED; Value: 217; Range: 150-450; Units: k/mm3; Status: F Test: NEUTROPHILS %; Value: 86.2; Range: 36.0-66.0; Abnormal: Above high normal; Units: %; Status: F Test: LYMPH %; Value: 6.0; Range: 24.0-44.0; Abnormal: Below low normal; Units: %; Status: F Test: MONO %; Value: 6.0; Range: 0.0-5.0; Abnormal: Above high normal; Units: %; Status: F Test: EOS %; Value: 0.9; Range: 0.0-3.0; Units: %; Status: F Test: BASO %; Value: 0.2; Range: 0.0-1.0; Units: %; Status: F Test: LARGE UNSTAINED CELL %; Value: 0.8; Range: 0.0-4.0; Units: %; Status: F Test: NEUTROPHILS #; Value: 12.7; Range: 1.8-7.7; Abnormal: Above high normal; Units: K/mm3; Status: F Test: LYMPH #; Value: 1.0; Range: 1.5-4.5; Abnormal: Below low normal; Units: K/mm3; Status: F Test: MONO #; Value: 0.9; Range: 0.0-0.8; Abnormal: Above high normal; Units: K/mm3; Status: F Test: EOS #; Value: 0.1; Range: 0.0-0.50; Units: K/mm3; Status: F Test: BASO #; Value: 0.0; Range: 0.0-0.2; Units: K/mm3; Status: F Test: LARGE UNSTAINED CELL #; Value: 0.1; Range: 0.0-0.4; Units: K/mm3; Status: F Lab Order: Cardiac Injury Profile; SPEC'05/03/16 00:49 Test: CPK CREATINE PHOSPHOKINASE; Value: 82; Range: 26-192; Units: U/L; Status: F Test: CK-MB VALUE MASS; Value: 1.0; Range: 0.0-3.6; Units: NG/ML; Status: F Test: MB/CK RELATIVE INDEX; Value: 1.21; Range: < OR =4; Status: F Test Note: ; DIAGNOSIS CRITERIA MMB ng/ml Relative Index (RI) NON-AMI < or = 5 N/A SILVESTRE ZONE > 5 < or = 4 AMI > 5 > 4 Lab Order: Lipase; SPEC'M 05/03/16 00:49 Test: LIPASE; Value: 165; Range: 73-393; Units: U/L; Status: F Lab Order: Liver Profile; SPEC'M 05/03/16 00:49 Test: AST/SGOT; Value: 39; Range: 15-37; Abnormal: Above high normal; Units: U/L; Status: F Test: ALT/SGPT; Value: 45; Range: 12-78; Units: U/L; Status: F Test: ALKALINE PHOSPHATASE; Value: 88; Range: 45-117; Units: U/L; Status: F Test: BILIRUBIN,TOTAL; Value: 0.4; Range: 0.2-1.0; Units: MG/DL; Status: F Test: BILIRUBIN,DIRECT; Value: < 0.1; Range: 0.0-0.2; Units: MG/DL; Status: F Test: TOTAL PROTEIN; Value: 7.2; Range: 6.4-8.2; Units: GM/DL; Status: F Test: ALBUMIN; Value: 4.1; Range: 3.2-5.2; Units: GM/DL; Status: F Test: ALBUMIN/GLOBULIN RATIO; Value: 1.32; Range: 1.00-1.93; Status: F Lab Order: Troponin; SPEC'M 05/03/16 00:49 Test: TROPONIN I; Value: < 0.02; Range: < 0.10; Units: NG/ML; Status: F Test Note: ; Troponin I Reference Interval for [employer] LOCI: 99th Percentile= 0.00-0.045 ng/ml Risk Stratification: <= 0.10 ng/ml Decreased Risk for Adverse Clinical Events. 0.10-1.50 ng/ml Increased Risk for Adverse Clinical Events. Evaluation of additional criterion and/or repeat testing in 2-6 hours is suggested to rule out myocardial damage. >= 1.50 ng/ml Indicative of Myocardial Injury. Lab Order: Magnesium Level; SPEC'M 05/03/16 00:49 Test: MAGNESIUM LEVEL; Value: 1.7; Range: 1.8-2.4; Abnormal: Below low normal; Units: MG/DL; Status: F Outcome: 03:24 Discharge ordered by Provider. mm11 04:01 Discharge Assessment: Patient awake, alert and oriented x 3. No cognitive and/or js15 functional deficits noted. Patient verbalized understanding of disposition instructions. patient administered narcotics - no. The following High Risk Discharge criteria are identified: None. Discharged to home via wheelchair. Condition: stable. Discharge instructions given to patient, Instructed on discharge instructions, follow up and referral plans. medication usage, Demonstrated understanding of instructions, medications, Pt was receptive of discharge instructions/ teaching. Prescriptions given X 1. No special radiology studies were completed. Property sent home with patient. 04:01 Patient left the ED. js15 Signatures: Dispatcher [employer] EDMS Rashi Pizarro, Pasta Press Operator Unit ml3 Anibal Allred, DO mm11 Katie Ferraro, HAT STOCK LAMINATING MACHINE OPERATOR HAT STOCK LAMINATING MACHINE OPERATOR johnnie Alison Doan,RN RN js15 Britni Macedo Kathie klr Chart Complete FIDENCIO
== END 2016-05-03 04:01 | disposition home or self-care (01) ==
LOC: M ED 23:59
DX: E83.42 Hypomagnesemia (principal); R11.2 Nausea with vomiting, unspecified; R19.7 Diarrhea, unspecified; I10 Essential (primary) hypertension; E78.00 Pure hypercholesterolemia, unspecified; K21.9 Gastro-esophageal reflux disease without esophagitis; C85.90 Non-Hodgkin lymphoma, unspecified, unspecified site; Z86.19 Personal history of other infectious and parasitic diseases; Z79.899 Other long term (current) drug therapy; Z79.82 Long term (current) use of aspirin; E73.9 Lactose intolerance, unspecified; Z88.5 Allergy status to narcotic agent
CPT/HCPCS: 80048; 80076; 82150; 82550; 82553; 83690; 83735; 84484; 85025; 96374; 99284; J2405

== ENCOUNTER 2016-06-13 10:33 | Day surgery (SDC) | payer MEDICARE, BC ==
[~2016-06-13] VITALS: Ht 167.6 cm; Wt 78.9 kg
[2016-06-13] MEDS ORDERED: NS 1,000 ML IV ONE (11:00)
[2016-06-13] MEDS ORDERED: KETOROLAC 30 MG/ML VIAL (J1885) IV ONE (11:00)
[2016-06-13] MEDS ORDERED: ONDANSETRON 4MG/2ML VIAL (J2405) IV ONE (11:00)
[2016-06-13] MEDS ORDERED: MORPHINE 2 MG/ML 1ML SYRINGE IV ONE (11:00)
[2016-06-13 11:16] LABS: BASO % 0.2 % (0.0-1.0); EOS # 0.2 K/mm3 (0.0-0.50); EOS % 1.3 % (0.0-3.0); LARGE UNSTAINED CELL # 0.1 K/mm3 (0.0-0.4); LYMPH # 1.7 K/mm3 (1.5-4.5); LYMPH % 11.5 % (24.0-44.0); MEAN CORPUSCULAR HEMOGLOBIN 31.5 pg (27.0-33.0); MEAN CORPUSCULAR HGB CONC 32.2 g/dl (32.0-36.5); MEAN CORPUSCULAR VOLUME 97.8 fl (80.0-96.0); MONO # 0.4 K/mm3 (0.0-0.8); MONO % 2.6 % (0.0-5.0); NEUTROPHILS # 11.5 K/mm3 (1.8-7.7); NEUTROPHILS % 83.4 % (36.0-66.0); PLATELET COUNT, AUTOMATED 240 k/mm3 (150-450); RED CELL DISTRIBUTION WIDTH 12.9 % (11.5-14.5); WHITE BLOOD COUNT 13.8 K/mm3 (4.0-10.0)
--- NOTE | 2016-06-13 11:38 | REP ---
Clinical: Abdominal pain. Comparison: 10/28/2011. Findings: Acute moderate right-sided obstructive uropathy with hydroureteronephrosis and periureteral stranding secondary to a 6 mm obstructing calculus in the distal right ureter (images 115 - 116). Nonobstructing 3 mm left renal calculus identified. Evaluation of the bladder and pelvis is limited due to metallic streak artifact from right hip prosthesis. Liver, spleen, pancreas, bilateral adrenal glands are normal for noncontrast examination. The patient is status post cholecystectomy. The enteric system is without obstruction or acute inflammatory process. Diverticulosis noted without acute diverticulitis. Pelvis demonstrates grossly normal bladder and uterus/adnexa. No ascites. No free air. No adenopathy. Musculoskeletal structures demonstrate degenerative changes. Impression: 1. Acute moderate right-sided obstructive uropathy with 6 mm calculus in the distal right ureter. Nonobstructing 3 mm left renal calculus. 2. Diverticulosis. 3. 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 Signed by Brian Rowland MD 06/13/2016 11:30 A
[2016-06-13] MEDS ORDERED: CIPROFLOXACIN 400 MG in APPROPRIATE DILUENT 1 EA IV ONE (12:15)
[2016-06-13 12:37] LABS: ALBUMIN 3.5 GM/DL (3.2-5.2); ALBUMIN/GLOBULIN RATIO 1.13 (1.00-1.93); ALKALINE PHOSPHATASE 73 U/L (45-117); ALT/SGPT 27 U/L (12-78); ANION GAP 9 MEQ/L (8-16); AST/SGOT 20 U/L (15-37); BILIRUBIN,DIRECT < 0.1 MG/DL (0.0-0.2); BILIRUBIN,TOTAL 0.5 MG/DL (0.2-1.0); BLOOD UREA NITROGEN 22 MG/DL (7-18); CALCIUM LEVEL 8.7 MG/DL (8.8-10.2); CARBON DIOXIDE LEVEL 24 MEQ/L (21-32); CHLORIDE LEVEL 108 MEQ/L (98-107); CREATININE FOR GFR 1.17 MG/DL (0.55-1.02); GLUCOSE, FASTING 109 MG/DL (83-110); POTASSIUM SERUM 4.2 MEQ/L (3.5-5.1); SODIUM LEVEL 141 MEQ/L (136-145); TOTAL PROTEIN 6.6 GM/DL (6.4-8.2)
[2016-06-13 12:38] LABS: INR 0.99
[2016-06-13] MEDS ORDERED: CONRAY-60 60% 50ML VIAL (Q9961) As Ordered ONE (13:35)
[2016-06-13] MEDS ORDERED: FLUT1SPR2 (13:47)
[2016-06-13] MEDS ORDERED: EPIN0.052 OU (13:47)
[2016-06-13] MEDS ORDERED: PANT40TA2 PO (13:47)
[2016-06-13] MEDS ORDERED: MELO15TA4 PO (13:47)
[2016-06-13] MEDS ORDERED: VAGI10TA PV (13:47)
[2016-06-13] MEDS ORDERED: ASPI1TAB PO (13:47)
[2016-06-13] MEDS ORDERED: GLUCTAB6 PO (13:47)
[2016-06-13] MEDS ORDERED: ALLE1TAB23 PO (13:47)
[2016-06-13] MEDS ORDERED: B COTAB3 PO (13:47)
[2016-06-13] MEDS ORDERED: MONT10TA2 PO (13:47)
[2016-06-13] MEDS ORDERED: ATOR1TAB19 PO (13:47)
[2016-06-13] MEDS ORDERED: VITA-121 PO (13:47)
[2016-06-13] MEDS ORDERED: [UNRECOGNIZED DRUG - OTHER] (13:47)
[2016-06-13] MEDS ORDERED: ACE65ERTAB PO (13:49)
[2016-06-13] MEDS ORDERED: METO12TA PO (13:50)
[2016-06-13] MEDS ORDERED: PROPOFOL 200 MG/20 ML VIAL As Ordered ONE (14:34)
[2016-06-13] MEDS ORDERED: MIDAZOLAM INJ 2 MG/2 ML VIAL (J2250) As Ordered ONE (14:34)
[2016-06-13] MEDS ORDERED: LIDOCAINE 2% INJ 100 MG/5 ML SDV (FOR ANES.) As Ordered ONE (14:34)
[2016-06-13] MEDS ORDERED: fentaNYL 100 MCG/2 ML INJECTION (J3010) As Ordered ONE (14:34)
[2016-06-13] MEDS ORDERED: ceFAZolin 2 GM/D5W 50 ML IV BAG (J0690) As Ordered ONE (14:34)
[2016-06-13] MEDS ORDERED: ROCURONIUM BROMIDE 50 MG/5 ML VIAL As Ordered ONE (14:45)
[2016-06-13] MEDS ORDERED: ePHEDrine SULFATE 25 MG/5 ML(5MG/ML) SYRINGE As Ordered ONE (15:07)
[2016-06-13] MEDS ORDERED: ONDANSETRON 4MG/2ML VIAL (J2405) As Ordered ONE (15:09)
[2016-06-13] MEDS ORDERED: GLYCOPYRROLATE INJ 0.2 MG/ML 2 ML VIAL As Ordered ONE ×2 (15:10→15:29)
[2016-06-13] MEDS ORDERED: NEOSTIGMINE 1MG/ML 5 ML SYRINGE (J2710) As Ordered ONE (15:10)
--- NOTE | 2016-06-13 15:10 | HPE ---
DATE OF ADMISSION: 06/13/2016 ATTENDING PHYSICIAN: Maya Holden MD REASON FOR ADMISSION: Distal right ureteral stone with inadequate pain control. HISTORY OF PRESENT ILLNESS: The patient is a 76-year-old female who comes into the emergency room this morning with severe right lower back pain, nausea, chills and loose stools. A CT scan of the abdomen and pelvis was done which showed an obstructing distal left ureteral stone measuring 6.5 mm. There was a nonobstructing left renal stone. Her white blood count was slightly elevated at 13.8. She was given morphine, but still continued to have pain and did not feel comfortable going home since she has had trouble taking narcotics because of an issue with fainting after hydrocodone. I came into the hospital to see her and it was decided to bring her to the operating room for further surgical management. This is the first stone episode for Emperatriz. She denies any history of gross hematuria or burning with urination. She has only had one urinary tract infection in her life. She denies any other significant irritative or obstructive voiding symptoms. PAST MEDICAL HISTORY: Non-Hodgkin B cell lymphoma. High blood pressure. Endometriosis. Hypercholesterolemia. There was a questionable history of a heart attack, but she was told that it was not a true heart attack. Congenital left hip dislocation. Shingles. Mononucleosis. PAST SURGICAL HISTORY: Appendectomy. Cholecystectomy. Tonsillectomy. Hip surgery. Oophorectomy. MEDICATIONS: - metoprolol - pantoprazole - monotlucast. - meloxicam - epinastine - fluticasone nasal spray - atorvastatin - Vagifem - vitamin D - Justine - aspirin 81 mg daily SOCIAL HISTORY: She never smoked cigarettes and she denies the use of IV drugs. She lives alone. FAMILY HISTORY: Her brother has a history of kidney stones. ALLERGIES: HYDROCODONE. She fainted once, but this was after chemotherapy and PROPOFOL, she had significant vomiting after a procedure where she was given propofol. REVIEW OF SYSTEMS: A full 12 system review was done. All this is only positive for lactose intolerance, occasional diarrhea, history of endometriosis and history of back pain, now doing fine. PHYSICAL EXAMINATION: This is a well-developed, well-nourished female lying in a hospital bed in the emergency room, in no apparent respiratory distress. She is alert and oriented x3. She is afebrile. Her blood pressure is 158/78 and her pulse is 86. Her head is normocephalic, atraumatic. Her trachea is midline. She has no significant supraclavicular or cervical adenopathy. She does have some right CVA tenderness. Her abdomen is otherwise soft and nontender without any rebound or guarding. Her extremities show no cyanosis, clubbing or edema. LABORATORY DATA: Her white blood count is elevated a 13.8. Her hemoglobin and hematocrit is 15.9 over 49.3. Her serum calcium level is 8.7 and her creatinine is 1.17 with a BUN of 22, which looks a little prerenal. A urinalysis does show 107 white blood cells per high power field with 30 red blood cells and some bacteria. A urine culture is pending. CT scan of the abdomen and pelvis done without contrast on 06/13/2016 shows acute moderate right-sided obstructive uropathy with a 6 mm calculus in the distal right ureter and a nonobstructing 3 mm left renal calculus. There was also some diverticulosis and extensive degenerative changes involving the visualized thoracolumbar spine and left hip. DISCUSSION: I discussed these findings at length with the patient in the hospital today. We discussed different options available including sending her home with antibiotics and pain medication, admission for IV hydration and pain control, versus immediate surgical management. She elected immediate surgical management since she does live alone and wants to get this taken care of. We discussed exactly how the procedure of right ureteroscopy, laser lithotripsy, stone basketing and stent placement is done and what to expect both pre and post procedurally. We discussed the major risks of the procedure, which included but was not limited to the risks of general anesthesia, reactions to medication, bleeding, infection, stent pain, inability to get the stone and injury to the organs in the area. Informed consent was obtained in both verbal and written form and the patient clearly understands that she will need to come to the office to get the stent removed by cystoscopic examination. IMPRESSION: 1. Distal right ureteral stone measuring 6 mm in a patient who does not tolerate by mouth (p.o.) pain medication well and elected for emergent surgical management. 2. Nonobstructing 3 mm left renal stone in a patient who has never had a stone before. 3. Medical history including non-Hodgkins lymphoma, high blood pressure and hip issues and degenerative changes seen on CT. PLAN: 1. Bring the patient to the operating room now for cystoscopy, right ureteroscopy, right laser lithotripsy and/or stone basketing and placement of a right double-J ureteral stent. 2. The patient would like to have 24-hour observation since there is no one who can stay with her tonight. We will plan on giving her postprocedural antibiotics.
[2016-06-13] MEDS ORDERED: PHENYLephrine HCL 500 MCG/5 ML (100MCG/ML) SYRINGE (J2370) As Ordered ONE (15:14)
[2016-06-13] MEDS ORDERED: ESMOLOL INJ 100MG/10ML VIAL As Ordered ONE (15:39)
[2016-06-13] MEDS ORDERED: BACT800T5 PO (15:48)
[2016-06-13] MEDS ORDERED: fentaNYL 100 MCG/2 ML INJECTION (J3010) IV PRN (16:15)
[2016-06-13] MEDS ORDERED: ONDANSETRON 4MG/2ML VIAL (J2405) IV PRN (16:15)
[2016-06-13] MEDS ORDERED: LR 1,000 ML IV SCH (16:15)
[2016-06-13 16:25] VITALS: BP 151/70
[2016-06-13] MEDS: D5W/0.45% SODIUM CHLORIDE 1,000 ML IV SCH (16:33)
[2016-06-13 17:00] VITALS: BP 160/70
[2016-06-13 17:30] VITALS: BP 154/80
[2016-06-13 19:00] VITALS: BP 125/59
[2016-06-13 20:00] VITALS: BP 130/61
[2016-06-14] MEDS ORDERED: ACETAMINOPHEN TAB 650MG DOSE (2X325MG) PO PRN
[2016-06-14] MEDS: D5W/0.45% SODIUM CHLORIDE 1,000 ML IV SCH ×2 (00:10→08:22)
[2016-06-14 02:00] VITALS: BP 143/67
[2016-06-14 05:41] VITALS: BP 136/65
--- NOTE | 2016-06-14 07:31 | RO ---
DATE OF PROCEDURE: 06/13/2016 PREOPERATIVE DIAGNOSIS: Distal 6 mm right ureteral stone. POSTOPERATIVE DIAGNOSIS: Distal 6 mm right ureteral stone. The same OPERATIVE PROCEDURE: Cystoscopy, attempted but failed right ureteroscopy, and placement of a #7-[place] double-J ureteral stent on the right side. SURGEON: Dr. Maya Holden ANESTHESIA: General. MEDICATIONS: Ancef 2 grams preoperatively. DRAINS: #7-[place] double-J ureteral stent. 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 INDICATIONS FOR PROCEDURE: The patient is a 76-year-old female who had severe right lower back pain this morning with some nausea, chills and diarrhea. She came to the emergency room and a CT scan of the abdomen and pelvis was done which showed a 6 mm distal right ureteral stone. Because she has had difficulty with by mouth (p.o.) pain medications in the past, she did not feel comfortable going home. After discussing all different options, alternatives, risks and benefits it was decided to bring her to the operating room for right ureteroscopy and laser lithotripsy and/or stone basketing with stent placement. All options, alternatives, risks and benefits had been discussed and informed consent was obtained in both verbal and written form. DESCRIPTION OF PROCEDURE: The patient was brought into the operating room. Sequential compression devices were in place and preoperative antibiotics had been given. Prior to induction of anesthesia, she wanted to be placed in the lithotomy position awake. Unfortunately she only felt comfortable with her legs very close together. We tried to lift her legs both high so I can get under with a ureteroscope that way or low so I could get over it, but none of these were comfortable for her. We finally chose a comfortable position and attempted the procedure. At this point, general anesthesia was induced and she was prepped and draped in the usual fashion. First a #21-[place] cystoscope was inserted. The urethra was noted to be open without any evidence of lesions or strictures. Upon entering the bladder, it was hard even to see the ureteral orifices because I had no lateral movements of the scope. I was able to get a glimpse of the right ureteral orifice though and finally was able to place a wire up to the right kidney under fluoroscopy. At this point, I placed a second wire and attempted ureteroscopy. With the semi-rigid ureteroscope, I was unable to get any traction in order to get into the right ureter. At this point we tried to take her leg out of the stirrup and hold it in the same positioning, where I could get a little more access but unfortunately we were unable to do this. Because the leg was now out of the stirrups I had wanted to try to proceed with flexible ureteroscopy, but I felt that not harming her hips was more important. I therefore made the decision just to place a ureteral stent and allow the ureter to dilate and either make the decision to pull the stent in approximately 2 weeks hoping that the stone comes with it versus considering extracorporeal shock wave lithotripsy (ESWL) in the future if the stone is well seen. FIDENCIO
[2016-06-14 10:00] VITALS: BP 151/71
--- NOTE | 2016-06-15 08:44 | REP ---
Retrograde pyelogram: A single intraoperative fluoroscopic views performed during placement of a right ureteral stent. The proximal and distal pigtails are in satisfactory locations. There is a total right hip arthroplasty. There is lumbar scoliosis convex right. Fluoroscopic exposure time is 0.06 minutes. Fluoroscopic images are performed last image hold technology. This requires no additional radiation. Signed by Dustin Alvares MD 06/15/2016 08:36 A
== END 2016-06-14 11:43 | disposition home or self-care (01) ==
LOC: M ED 11:10 → M SDC 14:17 → M MSPAV 16:22 → M SDC 06-14 11:43
PROVIDERS: ATTEND Specialist
DX: N20.1 Calculus of ureter (principal); I10 Essential (primary) hypertension; E78.5 Hyperlipidemia, unspecified; K21.9 Gastro-esophageal reflux disease without esophagitis; M19.90 Unspecified osteoarthritis, unspecified site; M81.0 Age-related osteoporosis without current pathological fracture; C85.90 Non-Hodgkin lymphoma, unspecified, unspecified site; E78.00 Pure hypercholesterolemia, unspecified; Q65.02 Congenital dislocation of left hip, unilateral; Z79.899 Other long term (current) drug therapy; Z79.82 Long term (current) use of aspirin; Z88.5 Allergy status to narcotic agent; Z88.8 Allergy status to other drugs, medicaments and biological substances; Z86.19 Personal history of other infectious and parasitic diseases
CPT/HCPCS: 36415; 52332; 74176; 74420; 80048; 80076; 81001; 83690; 85025; 85610; 87088; 87186; 99284; C1726; C2617; G0378; J0690; J0744; J1885; J2250; J2370; J2405; J2710; J3010

== ENCOUNTER → 2016-07-16 | Outpatient (CLI) | payer MEDICARE, BC ==
[~2016-07-16] MED LIST changes: +ACE65ERTAB PO; +ALLE1TAB23 PO; +ASPI1TAB PO; +ATOR1TAB19 PO; +B COTAB3 PO; +BACT800T5 PO; +EPIN0.052 OU; +FLUT1SPR2; +GLUCTAB6 PO; +MELO15TA4 PO; +METO12TA PO; +PANT40TA2 PO; +VAGI10TA PV; +VITA-121 PO; +[UNRECOGNIZED DRUG - OTHER]
--- NOTE | 2016-07-16 13:32 | REP ---
KUB, TWO VIEWS: HISTORY: Kidney stone. Air is present in small and large intestine. There are no air fluid levels or dilated loops of intestine. There is no pneumoperitoneum. A right ureteral stent is present. There is no definite nephrolithiasis. Degenerative change is present in the lumbar spine. Surgical clips are present in the right upper quadrant. The the patient is status post right hip arthroplasty. IMPRESSION: 1. Nonspecific bowel gas. 2. There is no definite nephrolithiasis. Signed by Harvey Gaitan MD 07/16/2016 01:39 P
== END ==
LOC: M SMT 11:22
PROVIDERS: ATTEND Specialist
DX: N20.0 Calculus of kidney (principal)

== ENCOUNTER → 2017-04-05 | Outpatient (REF) | payer MEDICARE, BC ==
[2017-04-05 15:10] LABS: BASO # 0.1 10^3/uL (0.0-0.2); EOS # 0.2 10^3/uL (0.0-0.50); EOS % 3.7 % (0.0-3.0); HEMATOCRIT 44.5 % (36.0-47.0); HEMOGLOBIN 14.2 g/dl (12.0-16.0); IMMATURE GRANULOCYTE % 0.3 % (0-0); LYMPH # 1.8 10^3/uL (1.5-4.5); LYMPH % 29.3 % (24.0-44.0); MEAN CORPUSCULAR HEMOGLOBIN 31.1 pg (27.0-33.0); MEAN CORPUSCULAR HGB CONC 31.9 g/dl (32.0-36.5); MEAN CORPUSCULAR VOLUME 97.6 fl (80.0-96.0); MONO # 0.5 10^3/uL (0.0-0.8); MONO % 7.8 % (0.0-5.0); NEUTROPHILS # 3.6 10^3/uL (1.8-7.7); NEUTROPHILS % 57.9 % (36.0-66.0); PLATELET COUNT, AUTOMATED 222 10^3/uL (150-450); RED BLOOD COUNT 4.56 10^6/uL (4.00-5.40); RED CELL DISTRIBUTION WIDTH 14.1 % (11.5-14.5); WHITE BLOOD COUNT 6.2 10^3/uL (4.0-10.0)
[2017-04-05 15:36] LABS: ALBUMIN 3.5 GM/DL (3.2-5.2); ALBUMIN/GLOBULIN RATIO 1.06 (1.00-1.93); ALKALINE PHOSPHATASE 65 U/L (45-117); ALT/SGPT 29 U/L (12-78); ANION GAP 9 MEQ/L (8-16); AST/SGOT 23 U/L (7-37); BILIRUBIN,TOTAL 0.4 MG/DL (0.2-1.0); BLOOD UREA NITROGEN 18 MG/DL (7-18); CALCIUM LEVEL 9.6 MG/DL (8.8-10.2); CARBON DIOXIDE LEVEL 29 MEQ/L (21-32); CHLORIDE LEVEL 104 MEQ/L (98-107); CHOLESTEROL LEVEL 145 MG/DL (<200); CHOLESTEROL RISK RATIO 2.959 (<5); CREATININE FOR GFR 1.08 MG/DL (0.55-1.02); GLOMERULAR FILTRATION RATE 52.5 (>39); GLUCOSE, FASTING 84 MG/DL (70-100); HDL CHOLESTEROL 49 MG/DL (>40); LDL CHOLESTEROL 59.8 MG/DL (<100); MAGNESIUM LEVEL 2.2 MG/DL (1.8-2.4); NON-HDL-C 96 MG/DL; SODIUM LEVEL 142 MEQ/L (136-145); TOTAL PROTEIN 6.8 GM/DL (6.4-8.2); TRIGLYCERIDES LEVEL 181 MG/DL (<150)
[2017-04-05 15:43] LABS: POTASSIUM SERUM 5.2 MEQ/L (3.5-5.1)
== END ==
LOC: M SFHCPLAZ 09:56
DX: C85.10 Unspecified B-cell lymphoma, unspecified site (principal); N20.0 Calculus of kidney; E78.00 Pure hypercholesterolemia, unspecified
CPT/HCPCS: 83735

== ENCOUNTER → 2017-07-28 | Outpatient (CLI) | payer MEDICARE, BC | LOC: M SMT 11:14 | DX: N20.0 Calculus of kidney (principal); M51.36 Other intervertebral disc degeneration, lumbar region; M41.9 Scoliosis, unspecified | CPT/HCPCS: 74018; G0463 ==

== ENCOUNTER → 2017-07-29 | Outpatient (CLI) | payer MEDICARE, BC ==
[2017-07-29 19:46] LABS: BACTERIA, URINE AUTO 1+ (NEGATIVE); RBC, URINE AUTO 4 /HPF (0-3); SQUAMOUS EPITHELIAL CELL UR AU 2 /HPF (0-6); WBC, URINE AUTO 132 /HPF (0-3)
== END ==
LOC: M SMT 12:58
DX: N20.0 Calculus of kidney (principal)
CPT/HCPCS: 81015

== ENCOUNTER → 2017-08-02 | Outpatient (REF) | payer MEDICARE, BC ==
[2017-08-02 18:52] LABS: BACTERIA, URINE AUTO 1+ (NEGATIVE); MUCUS, URINE SMALL (NEGATIVE); RBC, URINE AUTO 4 /HPF (0-3); SQUAMOUS EPITHELIAL CELL UR AU 1 /HPF (0-6); WBC, URINE AUTO 56 /HPF (0-3)
== END ==
LOC: M SMT 17:18
DX: N39.0 Urinary tract infection, site not specified (principal)
CPT/HCPCS: 81015

== ENCOUNTER → 2017-10-04 | Outpatient (REF) | payer MEDICARE, BC ==
[2017-10-04 13:35] LABS: HEMATOCRIT 47.2 % (36.0-47.0); HEMOGLOBIN 15.4 g/dl (12.0-15.5); MEAN CORPUSCULAR HEMOGLOBIN 31.6 pg (27.0-33.0); MEAN CORPUSCULAR HGB CONC 32.6 g/dl (32.0-36.5); MEAN CORPUSCULAR VOLUME 96.9 fl (80.0-96.0); PLATELET COUNT, AUTOMATED 219 10^3/uL (150-450); RED BLOOD COUNT 4.87 10^6/uL (4.00-5.40); RED CELL DISTRIBUTION WIDTH 14.5 % (11.5-14.5); WHITE BLOOD COUNT 5.7 10^3/uL (4.0-10.0)
[2017-10-04 13:58] LABS: ALBUMIN 3.7 GM/DL (3.2-5.2); ALBUMIN/GLOBULIN RATIO 1.23 (1.00-1.93); ALKALINE PHOSPHATASE 80 U/L (45-117); ALT/SGPT 34 U/L (12-78); ANION GAP 6 MEQ/L (8-16); AST/SGOT 23 U/L (7-37); BILIRUBIN,TOTAL 0.4 MG/DL (0.2-1.0); BLOOD UREA NITROGEN 20 MG/DL (7-18); CALCIUM LEVEL 9.5 MG/DL (8.8-10.2); CARBON DIOXIDE LEVEL 29 MEQ/L (21-32); CHLORIDE LEVEL 105 MEQ/L (98-107); CREATININE FOR GFR 1.14 MG/DL (0.55-1.30); GLOMERULAR FILTRATION RATE 49.3 (>39); GLUCOSE, FASTING 85 MG/DL (70-100); SODIUM LEVEL 140 MEQ/L (136-145); TOTAL PROTEIN 6.7 GM/DL (6.4-8.2)
[2017-10-04 14:03] LABS: POTASSIUM SERUM 5.3 MEQ/L (3.5-5.1)
== END ==
LOC: M SFHCPLAZ 11:02
DX: C85.10 Unspecified B-cell lymphoma, unspecified site (principal); N20.0 Calculus of kidney
CPT/HCPCS: 80053

== ENCOUNTER 2017-12-16 07:01 | Day surgery (SDC) | payer MEDICARE, BC ==
[2017-12-16] MEDS: TROPICAMIDE 1% OPHTH SOLN 2ML OD (07:00)
[2017-12-16] MEDS ORDERED: fentaNYL 100 MCG/2 ML INJECTION (J3010) As Ordered (07:14)
[2017-12-16] MEDS ORDERED: MIDAZOLAM INJ 2 MG/2 ML VIAL (J2250) As Ordered (07:14)
[2017-12-16] MEDS: PROPARACAINE 0.5% OPHTH SOL 15ML OD (07:32)
[2017-12-16] MEDS: PHENYLEPHRINE 2.5% OPHTH SOL 2ML OD (07:33)
[2017-12-16] MEDS: OFLOXACIN 0.3 % (OCUFLOX) OPTH SOL 5ML OD (07:33)
[2017-12-16] MEDS: LIDOCAINE 0.75%/EPINEPHRINE 0.025% IN BSS 1ML SYR INTRACAMERAL (OR ONLY) As Ordered (08:45)
[2017-12-16] MEDS: POVIDONE-IODINE 5% OPHTH PREP SOL 30ML As Ordered (08:45)
[2017-12-16] MEDS: DUOVISC (0.50ML VISCOAT/0.55ML PROVISC) OPHTH KIT As Ordered (08:45)
[2017-12-16] MEDS: CEFUROXIME 1MG/0.1ML INTRACAMERAL INJ As Ordered (08:45)
[2017-12-16] MEDS: BALANCED SALT IRRIGATION SOLUTION 500ML BAG (FOR OR EYE MACHINE) As Ordered (08:45)
[2017-12-16] MEDS ORDERED: ONDANSETRON 4MG/2ML VIAL (J2405) IV (09:15)
== END 2017-12-16 09:42 | disposition home or self-care (01) ==
LOC: M SDC 07:01
DX: H25.11 Age-related nuclear cataract, right eye (principal); H52.201 Unspecified astigmatism, right eye; I10 Essential (primary) hypertension; E78.5 Hyperlipidemia, unspecified; K21.9 Gastro-esophageal reflux disease without esophagitis; M12.9 Arthropathy, unspecified; R29.898 Other symptoms and signs involving the musculoskeletal system; T88.59XD Other complications of anesthesia, subsequent encounter; N80.0 Endometriosis of uterus; Z88.5 Allergy status to narcotic agent; Z88.7 Allergy status to serum and vaccine; Z91.018 Allergy to other foods; Z79.899 Other long term (current) drug therapy; Z92.21 Personal history of antineoplastic chemotherapy; Z85.72 Personal history of non-Hodgkin lymphomas; Z78.0 Asymptomatic menopausal state; Z96.641 Presence of right artificial hip joint
CPT/HCPCS: 66984

== ENCOUNTER 2018-02-24 11:21 | Day surgery (SDC) | payer MEDICARE, BC ==
[~2018-02-24] VITALS: Ht 170.2 cm; Wt 80.3 kg
[~2018-02-24 11:21] MED LIST changes: -EPIN0.052 OU; +EPIN1DRO OU; +FLON1SPR; +IMOD2TAB16 PO; +LIDOCAINE 2% INJ 100 MG/5 ML SDV (FOR ANES.) As Ordered ONE; +MELO15TA28 PO; -MELO15TA4 PO; -METO12TA PO; +METO1TAB87 PO; +MOBI15TA PO; -PANT40TA2 PO; +PANT40TA3 PO; +PROPOFOL 200 MG/20 ML VIAL As Ordered ONE
[2018-02-24] MEDS ORDERED: NS 1,000 ML IV ONE (12:15)
[2018-02-24] MEDS ORDERED: PROPOFOL 200 MG/20 ML VIAL As Ordered ONE (13:01)
--- NOTE | 2018-02-24 13:19 | ROOR ---
Patient Name: Emperatriz Lea Procedure Date: 02/24/2018 12:41 PM Date of : 1940 Age: 78 Room: [facility] Gender: Female Note Status: Finalized Procedure: Colonoscopy Indications: High risk colon cancer surveillance: Personal history of colonic polyps, Last colonoscopy: November 2014 Providers: Richard VO MD Referring MD: Javier Ríos MD Requesting Provider: Medicines: Monitored Anesthesia Care Complications: No immediate complications. Procedure: Pre-Anesthesia Assessment: - The heart rate, respiratory rate, oxygen saturations, blood pressure, adequacy of pulmonary ventilation, and response to care were monitored throughout the procedure. The Colonoscope was introduced through the anus and advanced to the cecum, identified by appendiceal orifice and ileocecal valve. The colonoscopy was technically difficult and complex due to multiple diverticula in the colon, a redundant colon and a tortuous colon. Successful completion of the procedure was aided by changing the patient to a supine position and using manual pressure. The patient tolerated the procedure well. The quality of the bowel preparation was adequate. Findings: The perianal and digital rectal examinations were normal. (EXAM: Complete, PREP:Adequate) Multiple small and large-mouthed diverticula were found in the sigmoid colon. The colon (entire examined portion) was significantly tortuous. Advancing the scope required changing the patient's position and applying abdominal pressure. The exam was otherwise without abnormality on direct and retroflexion views. Impression: - (EXAM: Complete, PREP:Adequate) - Moderate diverticulosis in the sigmoid colon. - Tortuous colon. - The examination was otherwise normal on direct and retroflexion views. - No specimens collected. Recommendation: - Repeat colonoscopy in 5 years for adenoma surveillance. - Use Pedi-Pedi scope for colonoscopy. Richard Vo MD Richard VO MD 02/24/2018 1:19:09 PM This report has been signed electronically. Number of Addenda: 0 Note Initiated On: 02/24/2018 12:41 PM Estimated Blood Loss: Estimated blood loss: none.
[2018-02-24 14:06] VITALS: BP 138/79
== END 2018-02-24 14:04 | disposition home or self-care (01) ==
LOC: M OPP 11:21
PROVIDERS: ATTEND Internal Medicine Gastroenterology
DX: K57.30 Diverticulosis of large intestine without perforation or abscess without bleeding (principal); Q43.8 Other specified congenital malformations of intestine; Z86.010 Personal history of colon polyps

== ENCOUNTER → 2018-04-18 | Outpatient (REF) | payer MEDICARE, BC ==
[~2018-04-18] MED LIST changes: -LIDOCAINE 2% INJ 100 MG/5 ML SDV (FOR ANES.) As Ordered ONE; -PROPOFOL 200 MG/20 ML VIAL As Ordered ONE
[2018-04-18 11:21] LABS: BASO # 0.1 10^3/uL (0.0-0.2); BASO % 0.8 % (0.0-1.0); EOS # 0.4 10^3/uL (0.0-0.50); HEMATOCRIT 46.9 % (36.0-47.0); LYMPH # 1.8 10^3/uL (1.5-4.5); LYMPH % 29.5 % (24.0-44.0); MEAN CORPUSCULAR HEMOGLOBIN 31.3 pg (27.0-33.0); MEAN CORPUSCULAR VOLUME 97.9 fl (80.0-96.0); MONO # 0.6 10^3/uL (0.0-0.8); MONO % 9.7 % (0.0-5.0); NEUTROPHILS # 3.2 10^3/uL (1.8-7.7); NEUTROPHILS % 53.5 % (36.0-66.0); PLATELET COUNT, AUTOMATED 221 10^3/uL (150-450); RED BLOOD COUNT 4.79 10^6/uL (4.00-5.40)
[2018-04-18 12:34] LABS: ALBUMIN 3.7 GM/DL (3.2-5.2); BILIRUBIN,TOTAL 0.3 MG/DL (0.2-1.0); CALCIUM LEVEL 9.4 MG/DL (8.8-10.2); CHOLESTEROL RISK RATIO 3.14 (<5); CREATININE FOR GFR 1.18 MG/DL (0.55-1.30); GLOMERULAR FILTRATION RATE 47.3 (>39); POTASSIUM SERUM 5.1 MEQ/L (3.5-5.1); THYROID STIMULATING HORMONE 3.12 uIU/ML (0.358-3.740); TOTAL PROTEIN 6.6 GM/DL (6.4-8.2)
[2018-04-18 13:47] LABS: TOTAL 25(OH) VITAMIN D 33.2 NG/ML (30.0-100.0)
== END ==
LOC: M SFHCPLAZ 08:48
PROVIDERS: ATTEND Internal Medicine
DX: C85.10 Unspecified B-cell lymphoma, unspecified site (principal); E78.00 Pure hypercholesterolemia, unspecified; M81.0 Age-related osteoporosis without current pathological fracture

== ENCOUNTER → 2018-10-31 | Outpatient (REF) | payer MEDICARE, BC ==
[~2018-10-31] MED LIST changes: -/PANT40TA PO; -ASPI1TAB PO; +ASPI81TA26 PO; -FLUTISP; +ONDA-227 PO; +PROT1TAB2 PO; -ZOFR8TAB PO
[2018-10-31 16:44] LABS: BASO % 0.6 % (0.0-1.0); EOS # 0.1 10^3/uL (0.0-0.50); EOS % 1.7 % (0.0-3.0); HEMATOCRIT 49.4 % (36.0-47.0); HEMOGLOBIN 16.1 g/dl (12.0-15.5); LYMPH # 1.6 10^3/uL (1.5-4.5); LYMPH % 23.6 % (24.0-44.0); MEAN CORPUSCULAR HEMOGLOBIN 32.5 pg (27.0-33.0); MEAN CORPUSCULAR HGB CONC 32.6 g/dl (32.0-36.5); MEAN CORPUSCULAR VOLUME 99.8 fl (80.0-96.0); MONO # 0.5 10^3/uL (0.0-0.8); MONO % 7.6 % (0.0-5.0); NEUTROPHILS # 4.3 10^3/uL (1.8-7.7); PLATELET COUNT, AUTOMATED 233 10^3/uL (150-450); RED BLOOD COUNT 4.95 10^6/uL (4.00-5.40); WHITE BLOOD COUNT 6.6 10^3/uL (4.0-10.0)
[2018-10-31 17:09] LABS: ALBUMIN 4.1 GM/DL (3.2-5.2); BILIRUBIN,TOTAL 0.3 MG/DL (0.2-1.0); CALCIUM LEVEL 9.9 MG/DL (8.8-10.2); CREATININE FOR GFR 1.5 MG/DL (0.55-1.30); GLOMERULAR FILTRATION RATE 35.8 (>39); MAGNESIUM LEVEL 2.5 MG/DL (1.8-2.4); TOTAL PROTEIN 7.5 GM/DL (6.4-8.2)
[2018-10-31 17:11] LABS: HEMOGLOBIN A1c 5.7 %
== END ==
LOC: M SFHCPLAZ 12:12
PROVIDERS: ATTEND Internal Medicine
DX: C85.10 Unspecified B-cell lymphoma, unspecified site (principal); N20.0 Calculus of kidney; Z83.3 Family history of diabetes mellitus; Z79.899 Other long term (current) drug therapy
CPT/HCPCS: 80053; 83036; 83735; 85025; G0463

== ENCOUNTER → 2019-05-01 | Outpatient (REF) | payer MEDICARE, BC ==
[~2019-05-01] MED LIST changes: +MONT10TA4 PO
[2019-05-01 18:25] LABS: ALBUMIN 3.9 GM/DL (3.2-5.2); BILIRUBIN,TOTAL 0.2 MG/DL (0.2-1.0); CALCIUM LEVEL 9.5 MG/DL (8.8-10.2); CREATININE FOR GFR 1.39 MG/DL (0.55-1.30); POTASSIUM SERUM 5.7 MEQ/L (3.5-5.1); TOTAL PROTEIN 7.1 GM/DL (6.4-8.2)
[2019-05-01 18:34] LABS: PTH INTACT 160.2 PG/ML (18.5-88.0); TOTAL 25(OH) VITAMIN D 34.2 NG/ML (30.0-100.0)
== END ==
LOC: M SFHCPLAZ 14:45
PROVIDERS: ATTEND Internal Medicine
DX: E78.00 Pure hypercholesterolemia, unspecified (principal); M81.0 Age-related osteoporosis without current pathological fracture; N18.3 Chronic kidney disease, stage 3 (moderate); Z23 Encounter for immunization
CPT/HCPCS: 80053; 82306; 83970; 90471; 90715; G0463

== ENCOUNTER → 2019-10-30 | Outpatient (REF) | payer MEDICARE, BC ==
[~2019-10-30] MED LIST changes: +PANT40TA29 PO; -PANT40TA3 PO
[2019-12-16 21:04] LABS: BASO # 0.1 10^3/uL (0.0-0.2); BASO % 0.6 % (0.0-1.0); EOS # 0.2 10^3/uL (0.0-0.5); EOS % 2.6 % (0.0-3.0); HEMATOCRIT 47.4 % (36.0-47.0); HEMOGLOBIN 15.4 g/dl (12.0-15.5); LYMPH # 1.9 10^3/uL (1.5-5.0); LYMPH % 24.1 % (24.0-44.0); MEAN CORPUSCULAR HEMOGLOBIN 31.6 pg (27.0-33.0); MEAN CORPUSCULAR HGB CONC 32.5 g/dl (32.0-36.5); MEAN CORPUSCULAR VOLUME 97.3 fl (80.0-96.0); MONO # 0.6 10^3/uL (0.0-0.8); MONO % 7.1 % (0.0-5.0); NEUTROPHILS # 5.2 10^3/uL (1.5-8.5); NEUTROPHILS % 65.2 % (36.0-66.0); PLATELET COUNT, AUTOMATED 216 10^3/uL (150-450); RED BLOOD COUNT 4.87 10^6/uL (4.00-5.40)
[2019-12-25 23:53] LABS: ALBUMIN 3.9 GM/DL (3.2-5.2); BILIRUBIN,TOTAL 0.3 MG/DL (0.2-1.0); CALCIUM LEVEL 9.9 MG/DL (8.8-10.2); CHOLESTEROL RISK RATIO 2.981 (<5); CREATININE FOR GFR 1.31 MG/DL (0.55-1.30); GLOMERULAR FILTRATION RATE 41.8 (>39); POTASSIUM SERUM 5.1 MEQ/L (3.5-5.1); TOTAL 25(OH) VITAMIN D 31.3 NG/ML (30.0-100.0); TOTAL PROTEIN 7.2 GM/DL (6.4-8.2)
== END ==
LOC: M SFHCPLAZ 12:22
PROVIDERS: ATTEND Internal Medicine
DX: N18.3 Chronic kidney disease, stage 3 (moderate) (principal); E78.00 Pure hypercholesterolemia, unspecified; M81.0 Age-related osteoporosis without current pathological fracture; Z87.898 Personal history of other specified conditions

== ENCOUNTER → 2020-04-29 | Outpatient (REF) | payer MEDICARE, BC ==
[~2020-04-29] MED LIST changes: +MONT10TA10 PO; -MONT10TA4 PO
[2020-04-29 14:37] LABS: BASO % 0.5 % (0.0-1.0); EOS # 0.3 10^3/uL (0.0-0.5); EOS % 4.2 % (0.0-3.0); HEMATOCRIT 50.3 % (36.0-47.0); HEMOGLOBIN 15.8 g/dl (12.0-15.5); LYMPH # 2.2 10^3/uL (1.5-5.0); LYMPH % 29.5 % (24.0-44.0); MEAN CORPUSCULAR HEMOGLOBIN 30.9 pg (27.0-33.0); MEAN CORPUSCULAR HGB CONC 31.4 g/dl (32.0-36.5); MEAN CORPUSCULAR VOLUME 98.4 fl (80.0-96.0); MONO # 0.5 10^3/uL (0.0-0.8); NEUTROPHILS # 4.4 10^3/uL (1.5-8.5); NEUTROPHILS % 58.4 % (36.0-66.0); PLATELET COUNT, AUTOMATED 226 10^3/uL (150-450); RED BLOOD COUNT 5.11 10^6/uL (4.00-5.40); WHITE BLOOD COUNT 7.6 10^3/uL (4.0-10.0)
[2020-04-29 14:56] LABS: ALBUMIN 3.8 GM/DL (3.2-5.2); BILIRUBIN,TOTAL 0.5 MG/DL (0.2-1.0); CALCIUM LEVEL 10.2 MG/DL (8.8-10.2); CHOLESTEROL RISK RATIO 2.566 (<5); CREATININE FOR GFR 1.34 MG/DL (0.55-1.30); GLOMERULAR FILTRATION RATE 40.6 (>39); MAGNESIUM LEVEL 2.1 MG/DL (1.8-2.4); POTASSIUM SERUM 5.6 MEQ/L (3.5-5.1); TOTAL PROTEIN 6.9 GM/DL (6.4-8.2)
[2020-04-29 14:59] LABS: PTH INTACT 61.4 PG/ML (18.5-88.0)
== END ==
LOC: M PLALAB 10:19
PROVIDERS: ATTEND Internal Medicine
DX: E78.00 Pure hypercholesterolemia, unspecified (principal); N18.30 Chronic kidney disease, stage 3 unspecified; C85.10 Unspecified B-cell lymphoma, unspecified site; Z11.59 Encounter for screening for other viral diseases
CPT/HCPCS: 36415; 80053; 80061; 83735; 83970; 85025; G0472

== ENCOUNTER → 2020-08-01 | Outpatient (REF) | payer MEDICARE, BC ==
[2020-08-01 18:00] LABS: HEMOGLOBIN A1c 5.4 %
[2020-08-01 18:12] LABS: ALBUMIN 3.8 GM/DL (3.2-5.2); BILIRUBIN,TOTAL 0.3 MG/DL (0.2-1.0); CALCIUM LEVEL 9.7 MG/DL (8.8-10.2); CREATININE FOR GFR 0.97 MG/DL (0.55-1.30); POTASSIUM SERUM 4.2 MEQ/L (3.5-5.1)
== END ==
LOC: M SFHCPLAZ 15:20
PROVIDERS: ATTEND Nurse Practitioner Adult Health
DX: Z79.899 Other long term (current) drug therapy (principal); Z83.3 Family history of diabetes mellitus
CPT/HCPCS: 36415; 80053; 83036; G0463

== ENCOUNTER → 2020-10-30 | Outpatient (CLI) | payer MEDICARE, BC ==
[~2020-10-30] MED LIST changes: +BISO5TAB14 PO; +COLE1TAB PO; +D31000TA2 PO; +EQL50TAB2 PO; +VITA-243 PO
[2020-10-30 18:13] LABS: BASO # 0.1 10^3/uL (0.0-0.2); BASO % 0.5 % (0.0-1.0); EOS # 0.2 10^3/uL (0.0-0.5); EOS % 2.1 % (0.0-3.0); HEMATOCRIT 47.8 % (36.0-47.0); HEMOGLOBIN 16.2 g/dl (12.0-15.5); LYMPH # 2.1 10^3/uL (1.5-5.0); LYMPH % 19.9 % (24.0-44.0); MEAN CORPUSCULAR HEMOGLOBIN 31.1 pg (27.0-33.0); MEAN CORPUSCULAR HGB CONC 33.9 g/dl (32.0-36.5); MEAN CORPUSCULAR VOLUME 91.7 fl (80.0-96.0); MONO % 9.6 % (2.0-8.0); NEUTROPHILS % 67.3 % (36.0-66.0); PLATELET COUNT, AUTOMATED 270 10^3/uL (150-450); RED BLOOD COUNT 5.21 10^6/uL (4.00-5.40); WHITE BLOOD COUNT 10.4 10^3/uL (4.0-10.0)
[2020-10-30 18:48] LABS: ALBUMIN 3.7 GM/DL (3.2-5.2); BILIRUBIN,TOTAL 0.4 MG/DL (0.2-1.0); CALCIUM LEVEL 9.6 MG/DL (8.8-10.2); CREATININE FOR GFR 1.01 MG/DL (0.55-1.30); GLOMERULAR FILTRATION RATE 56.3 (>39); POTASSIUM SERUM 4.8 MEQ/L (3.5-5.1); PTH INTACT 39.1 PG/ML (18.5-88.0); THYROID STIMULATING HORMONE 1.59 uIU/ML (0.358-3.740)
[2020-10-30 19:17] LABS: HEMOGLOBIN A1c 5.4 %
== END ==
LOC: M PLALAB 15:17
PROVIDERS: ATTEND Internal Medicine
DX: N18.30 Chronic kidney disease, stage 3 unspecified (principal); E78.00 Pure hypercholesterolemia, unspecified; C85.10 Unspecified B-cell lymphoma, unspecified site; Z83.3 Family history of diabetes mellitus; Z79.899 Other long term (current) drug therapy

== ENCOUNTER → 2020-10-30 | Outpatient (CLI) | payer MEDICARE | LOC: M LABSMTC 11:59 | PROVIDERS: ATTEND Anesthesiology | DX: Z01.812 Encounter for preprocedural laboratory examination (principal); Z20.822 Contact with and (suspected) exposure to COVID-19; Z79.899 Other long term (current) drug therapy; N18.30 Chronic kidney disease, stage 3 unspecified; E78.00 Pure hypercholesterolemia, unspecified; C85.10 Unspecified B-cell lymphoma, unspecified site; Z83.3 Family history of diabetes mellitus | CPT/HCPCS: 36415; 80053; 83036; 83735; 83970; 84443; 85025; 93005; G0463; U0003 ==

== ENCOUNTER 2020-11-04 09:04 | Day surgery (SDC) | payer MEDICARE, BC ==
[~2020-11-04] VITALS: Ht 170.2 cm; Wt 78.2 kg
[~2020-11-04 09:04] MED LIST changes: +CYCLOPENTOLATE 1% OPHTH SOLN 2 ML BTL OS SCH; +FLURBIPROFEN 0.03% OPHTH SOLN 2.5 ML OS SCH; +LIDOCAINE 1% SDV 5ML VIAL As Ordered ONE; +LR 1,000 ML IV SCH; +PHENYLEPHRINE 2.5% OPHTH SOL 2ML OS SCH; +TETRACAINE 0.5% OPHTH SOLN 4ML OS SCH
[2020-11-04] MEDS ORDERED: fentaNYL 100 MCG/2 ML INJECTION (J3010) As Ordered ONE (10:34)
[2020-11-04] MEDS ORDERED: MIDAZOLAM INJ 2MG/2ML VIAL (J2250 PER 1MG) As Ordered ONE (10:34)
[2020-11-04] MEDS ORDERED: DUOVISC (0.50ML VISCOAT/0.85ML PROVISC) OPHTH KIT As Ordered ONE (12:59)
[2020-11-04 14:50] VITALS: BP 119/56
== END 2020-11-04 15:15 | disposition home or self-care (01) ==
LOC: M SDC 09:04
PROVIDERS: ATTEND Ophthalmology
DX: H25.12 Age-related nuclear cataract, left eye (principal); I12.9 Hypertensive chronic kidney disease with stage 1 through stage 4 chronic kidney disease, or unspecified chronic kidney disease; E73.9 Lactose intolerance, unspecified; M19.90 Unspecified osteoarthritis, unspecified site; M51.9 Unspecified thoracic, thoracolumbar and lumbosacral intervertebral disc disorder; E78.00 Pure hypercholesterolemia, unspecified; N18.30 Chronic kidney disease, stage 3 unspecified; M81.0 Age-related osteoporosis without current pathological fracture; I25.10 Atherosclerotic heart disease of native coronary artery without angina pectoris; C85.10 Unspecified B-cell lymphoma, unspecified site; J30.9 Allergic rhinitis, unspecified; Z88.5 Allergy status to narcotic agent; Z88.4 Allergy status to anesthetic agent; Z79.899 Other long term (current) drug therapy
CPT/HCPCS: 66984; J2250; J3010; V2632

== ENCOUNTER → 2021-04-29 | Outpatient (CLI) | payer MEDICARE, BC ==
[~2021-04-29] MED LIST changes: -CYCLOPENTOLATE 1% OPHTH SOLN 2 ML BTL OS SCH; -FLURBIPROFEN 0.03% OPHTH SOLN 2.5 ML OS SCH; -LIDOCAINE 1% SDV 5ML VIAL As Ordered ONE; -LR 1,000 ML IV SCH; -MONT10TA10 PO; +MONT10TA97 PO; -PHENYLEPHRINE 2.5% OPHTH SOL 2ML OS SCH; -TETRACAINE 0.5% OPHTH SOLN 4ML OS SCH
[2021-04-29 15:23] LABS: BASO # 0.1 10^3/uL (0.0-0.2); BASO % 0.7 % (0.0-1.0); EOS # 0.4 10^3/uL (0.0-0.5); EOS % 4.9 % (0.0-3.0); HEMATOCRIT 49.1 % (36.0-47.0); HEMOGLOBIN 15.8 g/dl (12.0-15.5); LYMPH # 1.8 10^3/uL (1.5-5.0); LYMPH % 23.3 % (24.0-44.0); MEAN CORPUSCULAR HGB CONC 32.2 g/dl (32.0-36.5); MEAN CORPUSCULAR VOLUME 96.3 fl (80.0-96.0); MONO # 0.5 10^3/uL (0.0-0.8); MONO % 6.1 % (2.0-8.0); NEUTROPHILS # 4.9 10^3/uL (1.5-8.5); NEUTROPHILS % 64.6 % (36.0-66.0); PLATELET COUNT, AUTOMATED 223 10^3/uL (150-450); WHITE BLOOD COUNT 7.6 10^3/uL (4.0-10.0)
[2021-04-29 15:46] LABS: ALBUMIN 3.5 GM/DL (3.2-5.2); BILIRUBIN,TOTAL 0.4 MG/DL (0.2-1.0); CALCIUM LEVEL 9.9 MG/DL (8.8-10.2); CHOLESTEROL RISK RATIO 2.393 (<5); CREATININE FOR GFR 1.34 MG/DL (0.55-1.30); GLOMERULAR FILTRATION RATE 40.5 (>32); TOTAL PROTEIN 6.6 GM/DL (6.4-8.2)
[2021-04-29 15:51] LABS: PTH INTACT 51.2 PG/ML (18.5-88.0)
[2021-04-29 16:28] LABS: HEMOGLOBIN A1c 5.3 %
== END ==
LOC: M PLALAB 10:45
PROVIDERS: ATTEND Internal Medicine
DX: E78.00 Pure hypercholesterolemia, unspecified (principal); N18.31 Chronic kidney disease, stage 3a; Z79.899 Other long term (current) drug therapy; M81.0 Age-related osteoporosis without current pathological fracture; C85.10 Unspecified B-cell lymphoma, unspecified site; Z83.3 Family history of diabetes mellitus

== ENCOUNTER → 2021-07-23 | Outpatient (CLI) | payer MEDICARE, BC ==
[~2021-07-23] MED LIST changes: -D31000TA2 PO; +VITA100093 PO
[2021-07-23 15:23] LABS: BASO # 0.1 10^3/uL (0.0-0.2); BASO % 0.6 % (0.0-1.0); EOS # 0.2 10^3/uL (0.0-0.5); EOS % 1.6 % (0.0-3.0); HEMATOCRIT 47.8 % (36.0-47.0); HEMOGLOBIN 15.9 g/dl (12.0-15.5); LYMPH # 1.6 10^3/uL (1.5-5.0); LYMPH % 16.4 % (24.0-44.0); MEAN CORPUSCULAR HEMOGLOBIN 30.3 pg (27.0-33.0); MEAN CORPUSCULAR HGB CONC 33.3 g/dl (32.0-36.5); MONO # 0.5 10^3/uL (0.0-0.8); MONO % 5.5 % (2.0-8.0); NEUTROPHILS # 7.1 10^3/uL (1.5-8.5); NEUTROPHILS % 75.4 % (36.0-66.0); PLATELET COUNT, AUTOMATED 265 10^3/uL (150-450); RED BLOOD COUNT 5.25 10^6/uL (4.00-5.40); WHITE BLOOD COUNT 9.5 10^3/uL (4.0-10.0)
[2021-07-23 15:51] LABS: ALBUMIN 3.8 GM/DL (3.2-5.2); BILIRUBIN,TOTAL 0.5 MG/DL (0.2-1.0); CALCIUM LEVEL 10.6 MG/DL (8.8-10.2); CREATININE FOR GFR 1.02 MG/DL (0.55-1.30); GLOMERULAR FILTRATION RATE 55.5 (>32); TOTAL PROTEIN 7.1 GM/DL (6.4-8.2)
== END ==
LOC: M PLALAB 12:21
PROVIDERS: ATTEND Physician Assistant
DX: R10.9 Unspecified abdominal pain (principal)

== ENCOUNTER → 2021-07-23 | Outpatient (REF) | payer MEDICARE, BC | LOC: M SFHCPLAZ 17:02 | PROVIDERS: ATTEND Physician Assistant | DX: R10.9 Unspecified abdominal pain (principal) ==

== ENCOUNTER → 2021-08-06 | Outpatient (CLI) | payer MEDICARE, BC ==
[2021-08-06 15:41] LABS: CALCIUM LEVEL 10.1 MG/DL (8.8-10.2); CREATININE FOR GFR 1.04 MG/DL (0.55-1.30); GLOMERULAR FILTRATION RATE 54.3 (>32); POTASSIUM SERUM 4.9 MEQ/L (3.5-5.1)
== END ==
LOC: M RAD 13:54
PROVIDERS: ATTEND Physician Assistant
DX: N20.0 Calculus of kidney (principal); E87.1 Hypo-osmolality and hyponatremia

== ENCOUNTER → 2021-08-07 | Outpatient (REF) | payer MEDICARE, BC | LOC: M SFHCPLAZ 14:46 | PROVIDERS: ATTEND Physician Assistant | DX: R10.9 Unspecified abdominal pain (principal) ==

== ENCOUNTER → 2022-09-01 | Outpatient (REF) | payer MEDICARE, BC ==
[~2022-09-01] MED LIST changes: -GLUCTAB6 PO; +GLUCTAB7 PO
== END ==
LOC: M LAB REF 16:23
PROVIDERS: ATTEND Physician Assistant Medical
DX: M54.50 Low back pain, unspecified (principal); R30.0 Dysuria

== ENCOUNTER 2022-11-07 18:27 | Observation (INO) | payer MEDICARE, BC ==
[~2022-11-07] VITALS: Ht 167.6 cm; Wt 72.7 kg
[2022-11-07] MEDS ORDERED: ACET325C5 PO (19:00)
[2022-11-07 20:13] LABS: BASO # 0.1 10^3/uL (0.0-0.2); BASO % 0.6 % (0.0-1.0); EOS # 0.1 10^3/uL (0.0-0.5); EOS % 1.6 % (0.0-3.0); HEMATOCRIT 45.1 % (36.0-47.0); HEMOGLOBIN 15.2 g/dl (12.0-15.5); LYMPH # 1.9 10^3/uL (1.5-5.0); LYMPH % 21.5 % (24.0-44.0); MEAN CORPUSCULAR HEMOGLOBIN 30.3 pg (27.0-33.0); MEAN CORPUSCULAR HGB CONC 33.7 g/dl (32.0-36.5); MEAN CORPUSCULAR VOLUME 89.8 fl (80.0-96.0); MONO # 0.7 10^3/uL (0.0-0.8); NEUTROPHILS # 6.1 10^3/uL (1.5-8.5); PLATELET COUNT, AUTOMATED 288 10^3/uL (150-450); RED BLOOD COUNT 5.02 10^6/uL (4.00-5.40)
[2022-11-07 20:33] LABS: ETHYL ALCOHOL (ETHANOL) 0.004 % (0.000-0.010); LIPASE 35 U/L (12-53)
[2022-11-07 20:35] LABS: ACETAMINOPHEN LEVEL < 2.0 UG/ML (10.0-20.0); ALBUMIN 3.6 G/DL (3.2-5.2); ALKALINE PHOSPHATASE 65 U/L (46-116); ALT/SGPT 18 U/L (7.0-40); AST/SGOT 14 U/L (<34); BILIRUBIN,DIRECT 0.1 MG/DL (<0.4); BILIRUBIN,TOTAL 0.3 MG/DL (0.3-1.2); BLOOD UREA NITROGEN 18 MG/DL (9-23); CALCIUM LEVEL 9.9 MG/DL (8.3-10.6); CARBON DIOXIDE LEVEL 27 MMOL/L (20-31); CHLORIDE LEVEL 94 MMOL/L (98-107); CK-MB VALUE MASS < 1.0 NG/ML (<3.6); CREATININE FOR GFR 0.82 MG/DL (0.55-1.30); GLOMERULAR FILTRATION RATE > 60.0 (>32); GLUCOSE, FASTING 93 MG/DL (74-106); POTASSIUM SERUM 4.2 MMOL/L (3.5-5.1); SALICYLATE LEVEL < 3.0 MG/DL (<30); SODIUM LEVEL 128 MMOL/L (136-145); TOTAL PROTEIN 6.7 G/DL (5.7-8.2)
[2022-11-07 20:37] LABS: THYROID STIMULATING HORMONE 1.595 uIU/ML (0.55-4.78)
[2022-11-07 20:39] LABS: CPK CREATINE PHOSPHOKINASE 47 U/L (34-145); MB/CK RELATIVE INDEX 2.12 (< OR =4)
[2022-11-07 20:46] LABS: RSV AMPLIFICATION NEGATIVE (NEGATIVE)
[2022-11-07 21:50] LABS: BARBITURATES URINE NEGATIVE (NEGATIVE); COCAINE METABOLITE URINE NEGATIVE (NEGATIVE)
[2022-11-07 21:51] LABS: AMPHETAMINES LEVEL URINE NEGATIVE (NEGATIVE); BENZODIAZEPINES URINE NEGATIVE (NEGATIVE); CANNABINOIDS URINE NEGATIVE (NEGATIVE); METHADONE URINE NEGATIVE (NEGATIVE); OPIATES URINE NEGATIVE (NEGATIVE); PHENCYCLIDINE URINE NEGATIVE (NEGATIVE)
[2022-11-07 22:00] LABS: SODIUM,RANDOM URINE 42 MMOL/L
[2022-11-07] MEDS ORDERED: FAMO1TAB11 PO (22:05)
[2022-11-07] MEDS ORDERED: HOME MED LIST COMPLETE! XX SCH (22:10)
[2022-11-07] MEDS: LR 1,000 ML IV SCH (22:23)
[2022-11-07 22:33] LABS: OSMOLALITY SERUM 266 MOSM/KG (280-301)
[2022-11-07 22:38] LABS: PROCALCITONIN 0.09 ng/ml
[2022-11-07] MEDS: ASCORBIC ACID 500 MG TAB PO SCH (23:07)
[2022-11-07] MEDS: VITAMIN D 1,000 INTERNATIONAL UNITS TABLET PO SCH (23:08)
[2022-11-08] MEDS ORDERED: UNRESOLVED PATIENT OWN MED ORDER XX SCH (00:01)
[2022-11-08] MEDS: bisoproloL fumarate 5 MG TAB PO SCH ×2 (00:09→21:21)
[2022-11-08] MEDS ORDERED: ACETAMINOPHEN TAB 650MG DOSE (2X325MG) PO ONE (01:20)
[2022-11-08] MEDS: FLUTICASONE PROP 0.05% NASAL SPRAY 16 GM (FLONASE) PRN ×2 (01:45→08:35)
[2022-11-08 07:29] LABS: HEMATOCRIT 43.3 % (36.0-47.0); HEMOGLOBIN 14.7 g/dl (12.0-15.5); MEAN CORPUSCULAR HEMOGLOBIN 30.6 pg (27.0-33.0); MEAN CORPUSCULAR HGB CONC 33.9 g/dl (32.0-36.5); MEAN CORPUSCULAR VOLUME 90.2 fl (80.0-96.0); PLATELET COUNT, AUTOMATED 261 10^3/uL (150-450); WHITE BLOOD COUNT 9.5 10^3/uL (4.0-10.0)
[2022-11-08 07:50] LABS: BLOOD UREA NITROGEN 13 MG/DL (9-23); CALCIUM LEVEL 9.5 MG/DL (8.3-10.6); CARBON DIOXIDE LEVEL 28 MMOL/L (20-31); CHLORIDE LEVEL 96 MMOL/L (98-107); CREATININE FOR GFR 0.74 MG/DL (0.55-1.30); GLOMERULAR FILTRATION RATE > 60.0 (>32); GLUCOSE, FASTING 93 MG/DL (74-106); MAGNESIUM LEVEL 1.6 MG/DL (1.8-2.4); POTASSIUM SERUM 4.4 MMOL/L (3.5-5.1); SODIUM LEVEL 129 MMOL/L (136-145)
[2022-11-08] MEDS: MAG SULF 1GM/100ML (MAG RUN) 1 GM in IV 1 EA IV SCH ×4 (08:36→12:41)
[2022-11-08] MEDS: ENOXAPARIN 40MG/0.4ML SYRINGE (J1650 PER 10MG) SC SCH (08:37)
[2022-11-08] MEDS: ACETAMINOPHEN 500 MG TAB PO PRN ×2 (10:10→21:27)
[2022-11-08] MEDS ORDERED: SODIUM CHLORIDE 1 GM TAB PO ONE (10:35)
[2022-11-08 11:05] VITALS: BP 155/68; TEMP 98; O2SAT 98
[2022-11-08 14:00] VITALS: BP 165/71; TEMP 97.8; O2SAT 97
[2022-11-08] MEDS: SODIUM CHLORIDE 1 GM TAB PO SCH ×2 (16:31→21:21)
[2022-11-08] MEDS: LR 1,000 ML IV SCH (16:32)
[2022-11-08 21:16] VITALS: BP 143/73; TEMP 97.8; O2SAT 97
[2022-11-08] MEDS: VITAMIN D 1,000 INTERNATIONAL UNITS TABLET PO SCH (21:20)
[2022-11-08] MEDS: FAMOTIDINE 20 MG TAB PO SCH (21:20)
[2022-11-08] MEDS: ASCORBIC ACID 500 MG TAB PO SCH (21:21)
[2022-11-09 05:14] VITALS: BP 152/73; TEMP 96.9; O2SAT 98
[2022-11-09 06:02] LABS: BASO # 0.1 10^3/uL (0.0-0.2); BASO % 0.6 % (0.0-1.0); EOS # 0.2 10^3/uL (0.0-0.5); EOS % 1.8 % (0.0-3.0); HEMATOCRIT 42.8 % (36.0-47.0); HEMOGLOBIN 14.4 g/dl (12.0-15.5); LYMPH # 1.6 10^3/uL (1.5-5.0); LYMPH % 19.1 % (24.0-44.0); MEAN CORPUSCULAR HEMOGLOBIN 29.9 pg (27.0-33.0); MEAN CORPUSCULAR HGB CONC 33.6 g/dl (32.0-36.5); MONO # 0.6 10^3/uL (0.0-0.8); MONO % 7.5 % (2.0-8.0); NEUTROPHILS # 5.8 10^3/uL (1.5-8.5); NEUTROPHILS % 70.5 % (36.0-66.0); PLATELET COUNT, AUTOMATED 250 10^3/uL (150-450); RED BLOOD COUNT 4.81 10^6/uL (4.00-5.40); WHITE BLOOD COUNT 8.3 10^3/uL (4.0-10.0)
[2022-11-09 06:21] LABS: BLOOD UREA NITROGEN 13 MG/DL (9-23); CALCIUM LEVEL 8.9 MG/DL (8.3-10.6); CARBON DIOXIDE LEVEL 24 MMOL/L (20-31); CHLORIDE LEVEL 99 MMOL/L (98-107); CREATININE FOR GFR 0.74 MG/DL (0.55-1.30); GLOMERULAR FILTRATION RATE > 60.0 (>32); GLUCOSE, FASTING 93 MG/DL (74-106); POTASSIUM SERUM 4.2 MMOL/L (3.5-5.1); SODIUM LEVEL 131 MMOL/L (136-145)
[2022-11-09] MEDS: LR 1,000 ML IV SCH (06:30)
[2022-11-09] MEDS: ACETAMINOPHEN 500 MG TAB PO PRN ×2 (07:39→15:39)
[2022-11-09] MEDS: SODIUM CHLORIDE 1 GM TAB PO SCH ×3 (09:25→20:07)
[2022-11-09] MEDS: ENOXAPARIN 40MG/0.4ML SYRINGE (J1650 PER 10MG) SC SCH (09:26)
[2022-11-09 14:00] VITALS: BP 158/77; TEMP 97.7; O2SAT 100
[2022-11-09 19:23] VITALS: BP 159/69; TEMP 97.4; O2SAT 98
[2022-11-09] MEDS: VITAMIN D 1,000 INTERNATIONAL UNITS TABLET PO SCH (20:07)
[2022-11-09] MEDS: FAMOTIDINE 20 MG TAB PO SCH (20:07)
[2022-11-09] MEDS: ASCORBIC ACID 500 MG TAB PO SCH (20:07)
[2022-11-09 20:08] VITALS: BP 159/69
[2022-11-09] MEDS: bisoproloL fumarate 5 MG TAB PO SCH (20:08)
[2022-11-09] MEDS ORDERED: ATORVASTATIN 10 MG TAB PO SCH (21:00)
[2022-11-10] MEDS: ACETAMINOPHEN 500 MG TAB PO PRN (03:25)
[2022-11-10] MEDS: LR 1,000 ML IV SCH (03:34)
[2022-11-10 05:18] VITALS: BP 150/81; TEMP 97.6; O2SAT 97
[2022-11-10 05:23] LABS: HEMATOCRIT 41.4 % (36.0-47.0); HEMOGLOBIN 13.8 g/dl (12.0-15.5); MEAN CORPUSCULAR HEMOGLOBIN 30.2 pg (27.0-33.0); MEAN CORPUSCULAR HGB CONC 33.3 g/dl (32.0-36.5); MEAN CORPUSCULAR VOLUME 90.6 fl (80.0-96.0); PLATELET COUNT, AUTOMATED 239 10^3/uL (150-450); RED BLOOD COUNT 4.57 10^6/uL (4.00-5.40); WHITE BLOOD COUNT 7.8 10^3/uL (4.0-10.0)
[2022-11-10 08:03] LABS: BLOOD UREA NITROGEN 12 MG/DL (9-23); CARBON DIOXIDE LEVEL 25 MMOL/L (20-31); CHLORIDE LEVEL 103 MMOL/L (98-107); CREATININE FOR GFR 0.79 MG/DL (0.55-1.30); GLOMERULAR FILTRATION RATE > 60.0 (>32); GLUCOSE, FASTING 93 MG/DL (74-106); SODIUM LEVEL 136 MMOL/L (136-145)
[2022-11-10] MEDS: SODIUM CHLORIDE 1 GM TAB PO SCH (08:30)
[2022-11-10] MEDS: ENOXAPARIN 40MG/0.4ML SYRINGE (J1650 PER 10MG) SC SCH (08:30)
[2022-11-10] MEDS ORDERED: SODI1TAB6 PO (10:28)
== END 2022-11-10 11:35 | disposition home or self-care (01) ==
LOC: M ED 18:27 → M ED INP 18:28 → ENRESERV 11-08 09:45 → M MS4PR 11-08 11:10
PROVIDERS: ADMIT Internal Medicine; ATTEND Internal Medicine
DX: E87.1 Hypo-osmolality and hyponatremia (principal); E86.0 Dehydration; R53.1 Weakness; R41.0 Disorientation, unspecified; Z85.72 Personal history of non-Hodgkin lymphomas; K52.9 Noninfective gastroenteritis and colitis, unspecified; R63.0 Anorexia; I10 Essential (primary) hypertension; E78.5 Hyperlipidemia, unspecified; K22.2 Esophageal obstruction; Z88.5 Allergy status to narcotic agent; Z88.4 Allergy status to anesthetic agent; Z91.011 Allergy to milk products; Z79.899 Other long term (current) drug therapy
CPT/HCPCS: 36415; 70450; 71250; 74176; 80048; 80076; 80143; 80307; 80503; 81001; 82077; 82140; 82550; 82553; 83605; 83615; 83690; 83735; 83930; 83935; 84133; 84145; 84300; 84443; 84484; 85025; 85027; 86140; 87040; 87086; 87631; 93005; 93041; 94760; 96360; 96372; 97116; 97161; 97530; 99285; G0378; J1650; J3475

== ENCOUNTER 2023-12-12 20:41 | Emergency (ER) | payer MEDICARE ==
[~2023-12-12] VITALS: Ht 167.6 cm; Wt 72.5 kg
[~2023-12-12 20:41] MED LIST changes: +ACET325C5 PO; -ALLE1TAB23 PO; +FAMO1TAB11 PO; +FEXO-63 PO; +SODI1TAB6 PO
[2023-12-12 20:43] VITALS: BP 164/84; TEMP 97.2; O2SAT 99
[2023-12-13] MEDS ORDERED: SLOWTAB2 PO (22:56)
[2023-12-13] MEDS ORDERED: ACET650T3 PO (22:56)
== END 2023-12-12 22:20 | disposition home or self-care (01) ==
LOC: M ED 20:41
DX: S52.591A Other fractures of lower end of right radius, initial encounter for closed fracture (principal); Y92.9 Unspecified place or not applicable; Y93.9 Activity, unspecified; Y99.9 Unspecified external cause status; Z88.5 Allergy status to narcotic agent; Z88.8 Allergy status to other drugs, medicaments and biological substances; Z91.011 Allergy to milk products; Z79.1 Long term (current) use of non-steroidal anti-inflammatories (NSAID); Z79.899 Other long term (current) drug therapy

== ENCOUNTER 2023-12-13 17:26 | Observation (INO) | payer MEDICARE, BC ==
[~2023-12-13] VITALS: Ht 167.6 cm; Wt 72.7 kg
[2023-12-13 20:51] LABS: BASO % 0.2 % (0.0-1.0); EOS # 0.1 10^3/uL (0.0-0.5); EOS % 1.2 % (0.0-3.0); HEMATOCRIT 42.8 % (36.0-47.0); HEMOGLOBIN 14.5 g/dl (12.0-15.5); LYMPH # 1.7 10^3/uL (1.5-5.0); LYMPH % 18.4 % (24.0-44.0); MEAN CORPUSCULAR HEMOGLOBIN 31.7 pg (27.0-33.0); MEAN CORPUSCULAR HGB CONC 33.9 g/dl (32.0-36.5); MEAN CORPUSCULAR VOLUME 93.7 fl (80.0-96.0); MONO # 0.7 10^3/uL (0.0-0.8); MONO % 7.4 % (2.0-8.0); NEUTROPHILS # 6.5 10^3/uL (1.5-8.5); NEUTROPHILS % 72.4 % (36.0-66.0); PLATELET COUNT, AUTOMATED 260 10^3/uL (150-450); RED BLOOD COUNT 4.57 10^6/uL (4.00-5.40)
[2023-12-13] MEDS: NS 1,000 ML IV ONE (20:53)
[2023-12-13 21:13] LABS: CK-MB VALUE MASS < 1.0 NG/ML (<3.6)
[2023-12-13 21:16] LABS: ALBUMIN 3.4 G/DL (3.2-5.2); ALKALINE PHOSPHATASE 68 U/L (46-116); ALT/SGPT 21 U/L (7.0-40); AST/SGOT 22 U/L (<34); BILIRUBIN,DIRECT 0.2 MG/DL (<0.4); BILIRUBIN,TOTAL 0.7 MG/DL (0.3-1.2); BLOOD UREA NITROGEN 14 MG/DL (9-23); CALCIUM LEVEL 9.9 MG/DL (8.3-10.6); CARBON DIOXIDE LEVEL 27 MMOL/L (20-31); CHLORIDE LEVEL 99 MMOL/L (98-107); CREATININE FOR GFR 0.74 MG/DL (0.55-1.30); GLOMERULAR FILTRATION RATE > 60.0 (>32); GLUCOSE, FASTING 104 MG/DL (74-106); POTASSIUM SERUM 4.4 MMOL/L (3.5-5.1); SODIUM LEVEL 129 MMOL/L (136-145); TOTAL PROTEIN 6.5 G/DL (5.7-8.2)
[2023-12-13 21:18] LABS: THYROID STIMULATING HORMONE 1.686 uIU/ML (0.55-4.78)
[2023-12-13 21:19] LABS: CPK CREATINE PHOSPHOKINASE 67 U/L (34-145); MB/CK RELATIVE INDEX 1.49 (< OR =4)
[2023-12-13] MEDS ORDERED: SLOWTAB2 PO (22:56)
[2023-12-13] MEDS ORDERED: ACET650T3 PO (22:56)
[2023-12-13] MEDS ORDERED: HOME MED LIST COMPLETE! XX SCH (23:00)
[2023-12-14] MEDS: bisoproloL fumarate 5 MG TAB PO ONE (03:00)
[2023-12-14 05:29] LABS: HEMATOCRIT 42.5 % (36.0-47.0); MEAN CORPUSCULAR HEMOGLOBIN 31.3 pg (27.0-33.0); MEAN CORPUSCULAR HGB CONC 32.9 g/dl (32.0-36.5); MEAN CORPUSCULAR VOLUME 95.1 fl (80.0-96.0); PLATELET COUNT, AUTOMATED 220 10^3/uL (150-450); RED BLOOD COUNT 4.47 10^6/uL (4.00-5.40); WHITE BLOOD COUNT 7.9 10^3/uL (4.0-10.0)
[2023-12-14 05:41] LABS: BLOOD UREA NITROGEN 13 MG/DL (9-23); CALCIUM LEVEL 9.4 MG/DL (8.3-10.6); CARBON DIOXIDE LEVEL 24 MMOL/L (20-31); CHLORIDE LEVEL 103 MMOL/L (98-107); CREATININE FOR GFR 0.76 MG/DL (0.55-1.30); GLOMERULAR FILTRATION RATE > 60.0 (>32); GLUCOSE, FASTING 92 MG/DL (74-106); POTASSIUM SERUM 4.2 MMOL/L (3.5-5.1); SODIUM LEVEL 133 MMOL/L (136-145)
[2023-12-14] MEDS: ENOXAPARIN 40MG/0.4ML SYRINGE (J1650 PER 10MG) SC SCH (09:52)
[2023-12-14] MEDS: ACETAMINOPHEN TAB 650MG DOSE (2X325MG) PO PRN (15:29)
[2023-12-14 16:15] VITALS: BP 158/90; TEMP 97.3; O2SAT 98
[2023-12-14 20:30] VITALS: BP 17/89; TEMP 97.9
[2023-12-14] MEDS: FLUTICASONE PROP 0.05% NASAL SPRAY 16 GM (FLONASE) NARES SCH (21:00)
[2023-12-14 21:30] VITALS: BP 138/60; TEMP 99
[2023-12-14] MEDS: bisoproloL fumarate 5 MG TAB PO SCH (21:53)
[2023-12-14] MEDS: ASCORBIC ACID 500 MG TAB PO SCH (21:53)
[2023-12-14] MEDS: VITAMIN D 1,000 INTERNATIONAL UNITS TABLET PO SCH (21:53)
[2023-12-14] MEDS: FAMOTIDINE 20 MG TAB PO SCH (21:53)
[2023-12-15] VITALS (9 sets, daily range): BP systolic 104–150; BP diastolic 68–91; TEMP 97–97.5; O2SAT 94–98
[2023-12-15] MEDS: ATORVASTATIN 10 MG TAB PO SCH (08:23)
[2023-12-15] MEDS ORDERED: fentaNYL 100 MCG/2 ML INJECTION As Ordered ONE (11:45)
[2023-12-15] MEDS ORDERED: propofoL 200 MG/20 ML VIAL As Ordered ONE (11:46)
[2023-12-15] MEDS ORDERED: LIDOCAINE 2% 100MG/5ML SDV (FOR ANES.) As Ordered ONE (11:46)
[2023-12-15] MEDS ORDERED: ONDANSETRON 4MG 2ML VIAL As Ordered ONE (11:47)
[2023-12-15] MEDS ORDERED: ACETAMINOPHEN 1000MG 100ML IV BAG As Ordered ONE (11:49)
[2023-12-15] MEDS ORDERED: ETOMIDATE INJ 20MG/10ML VIAL As Ordered ONE (12:26)
[2023-12-15] MEDS ORDERED: ceFAZolin 2 GM/D5W 50 ML IV BAG As Ordered ONE (12:51)
[2023-12-15] MEDS ORDERED: ePHEDrine SULFATE 25 MG/5 ML(5MG/ML) SYRINGE As Ordered ONE (13:05)
[2023-12-15] MEDS ORDERED: GLYCOPYRROLATE INJ 0.2 MG/ML 2 ML VIAL As Ordered ONE (13:07)
[2023-12-15] MEDS ORDERED: ONDANSETRON 4MG 2ML VIAL IV PRN (13:50)
[2023-12-15] MEDS ORDERED: fentaNYL 100 MCG/2 ML INJECTION IV PRN (13:50)
[2023-12-15] MEDS ORDERED: oxyCODONE 5MG TAB PO PRN (13:50)
[2023-12-15] MEDS: HYDROMORPHONE HCL 0.5 MG/ 0.5 ML SYRINGE IV PRN (14:26)
[2023-12-15] MEDS: oxyCODONE 5MG TAB PO PRN (14:29)
[2023-12-15] MEDS: KETOROLAC 30 MG/ML 1ML VIAL IV ONE (15:00)
[2023-12-15] MEDS: oxyCODONE 5MG TAB PO ONE (17:41)
[2023-12-15] MEDS: ceFAZolin SOD 2 GM in IV 1 EA IV SCH (21:00)
[2023-12-16] VITALS (7 sets, daily range): BP systolic 120–142; BP diastolic 59–70; TEMP 97.5–97.9; O2SAT 91–97
[2023-12-17 04:44] VITALS: BP 136/65; TEMP 98.7; O2SAT 96
[2023-12-17 12:00] VITALS: BP 142/77; TEMP 97.5; O2SAT 97
[2023-12-17] MEDS ORDERED: OXYC-517 PO (12:34)
== END 2023-12-17 16:10 | disposition home health service (06) ==
LOC: M ED 17:26 → M ED INP 17:27 → M MS5PR 12-14 16:12
PROVIDERS: ADMIT Internal Medicine; ATTEND Internal Medicine
DX: S52.551A Other extraarticular fracture of lower end of right radius, initial encounter for closed fracture (principal); W18.30XA Fall on same level, unspecified, initial encounter; Y92.9 Unspecified place or not applicable; Y93.9 Activity, unspecified; Y99.9 Unspecified external cause status; Z99.89 Dependence on other enabling machines and devices; M25.531 Pain in right wrist; I10 Essential (primary) hypertension; E78.5 Hyperlipidemia, unspecified; K21.9 Gastro-esophageal reflux disease without esophagitis; E55.9 Vitamin D deficiency, unspecified; E87.1 Hypo-osmolality and hyponatremia; C85.96 Non-Hodgkin lymphoma, unspecified, intrapelvic lymph nodes; Z88.5 Allergy status to narcotic agent; Z88.4 Allergy status to anesthetic agent; Z91.011 Allergy to milk products; Z79.899 Other long term (current) drug therapy
CPT/HCPCS: 25607; 36415; 71045; 76000; 80047; 80048; 80076; 82550; 82553; 84443; 84484; 85025; 85027; 87486; 87581; 87633; 87798; 93005; 96361; 96372; 96374; 96376; 97116; 97161; 97165; 97530; 97535; 99285; C1713; G0378; J0131; J0665; J0690; J1100; J1171; J1596; J1650; J1885; J2405; J3010

== ENCOUNTER → 2023-12-30 | Outpatient (CLI) | payer MEDICARE, BC ==
[~2023-12-30] MED LIST changes: +ACET650T3 PO; +OXYC-517 PO; +SLOWTAB2 PO
== END ==
LOC: M SOG 07:26
PROVIDERS: ATTEND Physician Assistant
DX: S52.551A Other extraarticular fracture of lower end of right radius, initial encounter for closed fracture (principal); Y93.9 Activity, unspecified; Y92.9 Unspecified place or not applicable

== ENCOUNTER → 2024-01-27 | Outpatient (CLI) | payer MEDICARE, BC ==
[~2024-01-27] MED LIST changes: +EPIN0.055 OU; -EPIN1DRO OU
== END ==
LOC: M SOG 07:52
PROVIDERS: ATTEND Physician Assistant
DX: S52.551D Other extraarticular fracture of lower end of right radius, subsequent encounter for closed fracture with routine healing (principal); Z47.89 Encounter for other orthopedic aftercare

== ENCOUNTER → 2024-02-24 | Outpatient (CLI) | payer MEDICARE, BC | LOC: M SOG 07:57 | PROVIDERS: ATTEND Physician Assistant | DX: S52.551A Other extraarticular fracture of lower end of right radius, initial encounter for closed fracture (principal); Z47.89 Encounter for other orthopedic aftercare; Z53.8 Procedure and treatment not carried out for other reasons ==

== ENCOUNTER → 2024-10-10 | Outpatient (CLI) | payer MEDICARE, BC ==
[~2024-10-10] MED LIST changes: -ACE65ERTAB PO; +ACET-1593 PO; -EQL50TAB2 PO; +SLOW1TAB3 PO; -SLOWTAB2 PO; +VITA1TAB82 PO
== END ==
LOC: M WUC 14:23
PROVIDERS: ATTEND Nurse Practitioner Adult Health
DX: R05.9 Cough, unspecified (principal)

== ENCOUNTER 2025-01-19 11:54 | Observation (INO) | payer MEDICARE, BC ==
[~2025-01-19] VITALS: Ht 170.2 cm; Wt 77.2 kg
[~2025-01-19 11:54] MED LIST changes: -FLON1SPR; +FLON1SPR NARES
[2025-01-19 12:39] LABS: BASO # 0.1 10^3/uL (0.0-0.2); BASO % 0.6 % (0.0-1.0); EOS # 0.4 10^3/uL (0.0-0.5); EOS % 4.0 % (0.0-3.0); LYMPH # 1.6 10^3/uL (1.5-5.0); LYMPH % 16.6 % (24.0-44.0); MONO # 0.7 10^3/uL (0.0-0.8); MONO % 7.2 % (2.0-8.0); NEUTROPHILS # 6.7 10^3/uL (1.5-8.5); NEUTROPHILS % 71.1 % (36.0-66.0); PLATELET COUNT, AUTOMATED 293 10^3/uL (150-450)
[2025-01-19 13:04] LABS: ALT/SGPT 11 U/L (7.0-40); AST/SGOT 24 U/L (<34); CALCIUM LEVEL 9.3 MG/DL (8.3-10.6); CARBON DIOXIDE LEVEL 30 MMOL/L (20-31); CHLORIDE LEVEL 100 MMOL/L (98-107); CK-MB VALUE MASS < 1.0 NG/ML (<3.6); CREATININE FOR GFR 0.84 MG/DL (0.55-1.30); GLOMERULAR FILTRATION RATE 68.5 (>32); POTASSIUM SERUM 4.2 MMOL/L (3.5-5.1); SODIUM LEVEL 138 MMOL/L (136-145)
[2025-01-19 13:05] LABS: INR 1.04
[2025-01-19 13:08] LABS: FREE T4 1.36 NG/DL (0.89-1.76)
[2025-01-19 13:16] LABS: CPK CREATINE PHOSPHOKINASE 28 U/L (34-145)
[2025-01-19 13:54] LABS: CK-MB VALUE MASS < 1.0 NG/ML (<3.6); CPK CREATINE PHOSPHOKINASE 33 U/L (34-145)
[2025-01-19] MEDS ORDERED: HOME MED LIST COMPLETE! XX SCH (13:55)
[2025-01-19] MEDS: NS (Normal Saline) 0.9% 1,000 ML IV ONE (16:18)
[2025-01-19] MEDS ORDERED: ISOVUE-370 76% 100 ML VIAL As Ordered ONE (16:19)
[2025-01-19] MEDS: ENOXAPARIN 80 MG/0.8 ML SYRINGE (J1650 PER 10MG) SC ONE (20:03)
[2025-01-19] MEDS ORDERED: MOM 30 ML SUSPENSION UDC PO PRN (20:40)
[2025-01-19] MEDS: DOCUSATE SODIUM 100 MG CAPSULE PO SCH (21:00)
[2025-01-19 22:15] VITALS: BP 138/65; TEMP 99.3; O2SAT 96
[2025-01-19] MEDS: ACETAMINOPHEN 325 MG TAB PO PRN (23:55)
[2025-01-20 04:41] VITALS: BP 123/58; TEMP 97.3; O2SAT 97
[2025-01-20 06:33] LABS: PLATELET COUNT, AUTOMATED 274 10^3/uL (150-450)
[2025-01-20 07:06] LABS: ALT/SGPT < 9 U/L (7.0-40); AST/SGOT 22 U/L (<34); CALCIUM LEVEL 9.1 MG/DL (8.3-10.6); CARBON DIOXIDE LEVEL 25 MMOL/L (20-31); CHLORIDE LEVEL 102 MMOL/L (98-107); CREATININE FOR GFR 0.79 MG/DL (0.55-1.30); GLOMERULAR FILTRATION RATE 73.7 (>32); POTASSIUM SERUM 4.1 MMOL/L (3.5-5.1); SODIUM LEVEL 139 MMOL/L (136-145)
[2025-01-20] MEDS: ENOXAPARIN 80 MG/0.8 ML SYRINGE (J1650 PER 10MG) SC SCH (07:58)
[2025-01-20] MEDS: PANTOPRAZOLE 40MG TAB PO SCH (09:00)
[2025-01-20 12:24] VITALS: BP 128/60; TEMP 98.1; O2SAT 98
[2025-01-20 20:42] VITALS: BP 116/57; TEMP 98.3; O2SAT 94
[2025-01-21 06:03] VITALS: BP 123/59; TEMP 98.4; O2SAT 95
[2025-01-21] MEDS ORDERED: ELIQ5TAB PO (10:37)
[2025-01-21 12:00] VITALS: BP 142/68; TEMP 98.7; O2SAT 94
== END 2025-01-21 12:43 | disposition home health service (06) ==
LOC: M ED 11:54 → M ED INP 11:55 → M MSPAV 22:15
PROVIDERS: ADMIT Student in an Organized Health Care Education/Training Program; ATTEND Student in an Organized Health Care Education/Training Program
DX: I82.412 Acute embolism and thrombosis of left femoral vein (principal); I82.432 Acute embolism and thrombosis of left popliteal vein; I10 Essential (primary) hypertension; E78.5 Hyperlipidemia, unspecified; K21.9 Gastro-esophageal reflux disease without esophagitis; E87.1 Hypo-osmolality and hyponatremia; E55.9 Vitamin D deficiency, unspecified; M19.90 Unspecified osteoarthritis, unspecified site; Z92.21 Personal history of antineoplastic chemotherapy; Z96.641 Presence of right artificial hip joint; R26.89 Other abnormalities of gait and mobility; E86.0 Dehydration; Z85.72 Personal history of non-Hodgkin lymphomas; Z79.899 Other long term (current) drug therapy; Z88.5 Allergy status to narcotic agent; Z88.8 Allergy status to other drugs, medicaments and biological substances; Z91.018 Allergy to other foods
CPT/HCPCS: 36415; 70450; 71045; 71275; 80047; 80048; 80053; 80076; 82550; 82553; 83690; 83880; 84145; 84439; 84443; 84484; 85025; 85027; 85610; 85730; 93005; 93041; 93971; 94760; 96372; 97162; 99285; G0378; J1650; Q9967